=== PATIENT | female | born 1940 | race Caucasian/White ===

== ENCOUNTER 2018-11-30 15:21 | Inpatient (IN) | payer MEDICARE ==
[~2018-11-30] VITALS: Ht 162.6 cm; Wt 52.2 kg
[~2018-11-30 15:21] MED LIST changes: -ATORVASTATIN CA20 MG PO; -CARVEDILOL3.125 MG PO; -FUROSEMIDE40 MG PO; -LOTENSIN20 MG PO; -LUBRICANT EYE1 EACH OU; -PLAVIX75 MG PO; -RESTASIS1 EACH OU; -SYSTANE GEL EYE10 ML OU
--- OUTSIDE RECORDS SUMMARY | 2018-11-30 15:25 | XMS REPORT ---
Author [facility] Address Unknown Phone Unavailable Care Team Providers Care Restaurant Operations Manager Name Role Phone NYDIA ODELL Unavailable Unavailable Problems This patient has no known problems. Allergies, Adverse Reactions, Alerts This patient has no known allergies or adverse reactions. Medications This patient has no known medications. Results Test Description Test Time Test Comments Text Results Atomic Results Result Comments US RENAL RETROPERITONEAL COMP 2018-11-30 13:44:00 [place] [address] Patient Name: LISA HILTON MR #: [id number] : 1940 Age/Sex: 78/F Req #: [id number] Adm Physician: Ordered by: NYDIA ODELL MD Report #: [id number] Location: US Room/Bed: Procedure: [id number] US/US RENAL RETROPERITONEAL COMP Exam Date: 11/30/18 Exam Time: 1152 REPORT STATUS: Signed EXAM: Renal Ultrasound INDICATION: DYSURIA COMPARISON: None TECHNIQUE: Transverse and longitudinal images of the kidneys and bladder were obtained. FINDINGS: Right Kidney: Size: 10.1 cm, right renal cortex 1.2 cm. Appearance: Normal echogenicity. Collecting system: No hydronephrosis Stones: None Cyst/Mass: Multiple cystic, anechoic lesions are noted in the right kidney, with the largest located in the superior pole measuring 1.6 x 0.9 x 1.3 cm. Left Kidney: Size: 9.8 cm, left renal cortex 1.4 cm. Appearance: Normal echogenicity. Collecting system: No hydronephrosis Stones: None Cyst/Mass: 4.9 x 4.3 x 6.0 cm mostly exophytic lesion in the mid lateral aspect, which contains a thin nonvascular septation. Bladder: No focal lesions. 0.5 cm echogenic focus with posterior acoustic shadowing in the posterior aspect of the bladder, likely representing a calculus. Prevoid bladder volume 157.1 cc. Post void bladder volume 141.8 cc IMPRESSION: 1. Normal bilateral renal size and echogenicity. No hydronephrosis or obstruction. 2. Multiple simple appearing cysts in the right kidney, the point the largest measuring 1.6 cm. 3. 6.0 cm mostly exophytic minimally complex cyst in the left kidney. This may be followed with renal ultrasound in 6 months to document stability. 4. 0.5 cm calculus in the bladder lumen. This may represent a recently passed stone. 5. Mild to moderate post void residual Signed by: Dr. Lisa Lerma M.D. on 11/30/2018 1:48 PM Dictated By: LISA LERMA MD 1348 Transcribed By: RADHA on 11/30/18 1348 COPY TO: NYDIA ODELL MD CHEST 2 VIEWS 2018-11-30 13:41:00 [place] [address] Patient Name: LISA HILTON MR #: [id number] : 1940 Age/Sex: 78/F Req #: [id number] Adm Physician: Ordered by: NYDIA ODELL MD Report #: [id number] Location: US Room/Bed: Procedure: [id number] DX/CHEST 2 VIEWS Exam Date: 11/30/18 Exam Time: 1215 REPORT STATUS: Signed EXAMINATION: PA and lateral views of the chest. COMP ARISON: None CLINICAL HISTORY: Cough DISCUSSION: Lines/tubes: None. Lungs: The lungs are well inflated. Likely mild compressive atelectasis of the left lower lobe. Linear opacity in lingula likely represent subsegmental atelectasis. There is no evidence consolidation or pulmonary edema. Pleura: Small left pleural effusion. Heart and mediastinum: Mild enlargement of the cardiac silhouette. Pulmonary vasculature is normal. Atherosclerotic calcification of the thoracic aorta Bones and soft tissues: No acute bony abnormalities. Degenerative changes in the thoracic spine IMPRESSION: 1. Mild enlargement of the cardiac silhouette. Small left pleural effusion and likely associated mild compressive atelectasis of the left lower lobe. 2. Lingular subsegmental atelectasis. Signed by: Dr. Lisa Lerma M.D. on 11/30/2018 1:44 PM Dictated By: LISA LERMA MD 1344 Transcribed By: RADHA on 11/30/18 1344 COPY TO: NYDIA ODELL MD
[2018-11-30 17:23] LABS: BASOPHILS % 0.2 % (0.0-1.0); EOSINOPHILS % 0.1 % (0.0-6.0); HEMATOCRIT 43.9 % (34.2-44.1); HEMOGLOBIN 14.9 g/dL (12.0-16.0); LYMPHOCYTES # (AUTO) 0.5 (1.0-3.2); MEAN CORPUSCULAR HEMOGLOBIN 32.7 pg (28-32); MEAN CORPUSCULAR HGB CONC 33.9 g/dL (31-35); MEAN CORPUSCULAR VOLUME 96.5 fL (81-99); MONOCYTES # (AUTO) 0.4 (0.2-0.8); MONOCYTES % 4.3 % (4.4-11.3); NEUTROPHILS # (AUTO) 7.5 (2.1-6.9); NEUTROPHILS % 89.2 % (38.7-80.0); PLATELET COUNT 238 x10e3/uL (140-360); RED BLOOD COUNT 4.55 x10e6/uL (3.6-5.1); RED CELL DISTRIBUTION WIDTH 13.2 % (11.7-14.4)
[2018-11-30 17:34] LABS: INR 0.95; PROTHROMBIN TIME 13.2 seconds (11.9-14.5)
[2018-11-30 17:42] LABS: ALANINE AMINOTRANSFERASE 104 IU/L (0-55); ALBUMIN 3.6 g/dL (3.5-5.0); ALBUMIN/GLOBULIN RATIO 0.9 (0.8-2.0); ALKALINE PHOSPHATASE 94 IU/L (40-150); ANION GAP 15.5 mmol/L (8-16); BLOOD UREA NITROGEN 25 mg/dL (7-26); BUN/CREATININE RATIO 30 (6-25); CALCIUM 9.3 mg/dL (8.4-10.2); CARBON DIOXIDE 24 mmol/L (22-29); CHLORIDE 94 mmol/L (98-107); CREATINE KINASE 845 IU/L (29-168); CREATININE, SERUM 0.82 mg/dL (0.57-1.11); EST GLOMERULAR FILTRATION RATE > 60 ML/MIN (60-); GLUCOSE 118 mg/dL (74-118); MAGNESIUM 1.8 MG/DL (1.3-2.1); POTASSIUM 3.5 mmol/L (3.5-5.1); SODIUM 130 mmol/L (136-145)
[2018-11-30] MEDS ORDERED: CEFTRIAXONE SOD 1 GM/NS 50 ML 50 ML IV ONE (19:45)
[2018-11-30 19:51] LABS: BILIRUBIN,URINE NEGATIVE (NEGATIVE); CLARITY,URINE SL CLOUDY (CLEAR); COLOR,URINE YELLOW (YELLOW); KETONES,URINE TRACE (NEGATIVE); LEUKOCYTE ESTERASE ,URINE NEGATIVE (NEGATIVE); NITRITE,URINE NEGATIVE (NEGATIVE); URINE UROBILINOGEN 0.2 mg/dL (0.2 - 1)
[2018-11-30 19:52] LABS: PROTEIN,URINE DIPSTICK 2+ (NEGATIVE)
[2018-11-30 20:04] LABS: BACTERIA,URINE MANY /HPF
[2018-11-30] MEDS ORDERED: FUROSEMIDE INJ 10 MG/ML 2 ML VIAL ONE (21:35)
[2018-11-30] MEDS ORDERED: FUROSEMIDE INJ 10 MG/ML 4 ML VIAL IV ONE (21:45)
[2018-11-30] MEDS: FUROSEMIDE INJ 10 MG/ML 4 ML VIAL IV SCH (21:45)
--- NOTE | 2018-11-30 22:34 | NUR ---
Pt re-evaluated by me at bedside, new onset CHF- O2 saturation remained 98% on room air. Pt not tachypenic- BNP elevated and EF noted be low c/w systolic heart failure. Pt's CK is elevated- likely due to her work of breathing over the past few days and on arrival. Pt monitored by me in the ED- 60mg of Lasix given, pt diuresing in the ED- clinically improved. Pt speaking in full sentences, requiring no supplement O2. Pt stable for inpatient admission on the general medical floor with telemetry monitoring. Cardiology to follow.
--- NOTE | 2018-11-30 22:50 | NUR ---
PT BLADDERSCANNED AT BEDSIDE D/T C/O BLADDER FULLNESS AFTER LASIX INJ; PT STATES "I RELALY HAVE TO GO, BUT IT WONT COME OUT"; >300ML IN BLADDER SCANNER; 1000ML DRAINED INTO SONI AFTER INSERTION;
--- NOTE | 2018-11-30 23:48 | NUR ---
Received report from ER. The patient is admitted for CHF and SOB. The patient arrived on the bed with her daughter. The patient is alert/oriented x4. The patient provided her medical and surgical history as well as her medications. Call light within reach, bed height low, wheels lock, and bed alarm on. Patient was instructed to call for help for assistance with ambulation due to 3 falls in the past week.
[2018-11-30 23:50] VITALS: BP 140/81
[2018-11-30 23:52] VITALS: BP 140/81
[2018-12-01] VITALS (8 sets, daily range): BP systolic 131–143; BP diastolic 73–87
[2018-12-01] MEDS ORDERED: SYSTANE GEL EYE10 ML OU (00:31)
[2018-12-01] MEDS ORDERED: LUBRICANT EYE1 EACH OU (00:31)
[2018-12-01] MEDS ORDERED: RESTASIS1 EACH OU (00:31)
[2018-12-01 04:36] LABS: CREATINE KINASE MB 19.4 ng/mL (0-5.0)
[2018-12-01] MEDS ORDERED: LOTENSIN20 MG PO (05:22)
[2018-12-01 06:00] LABS: BASOPHILS % 0.2 % (0.0-1.0); EOSINOPHILS % 0.1 % (0.0-6.0); HEMATOCRIT 42.3 % (34.2-44.1); LYMPHOCYTES # (AUTO) 0.7 (1.0-3.2); MEAN CORPUSCULAR HGB CONC 33.1 g/dL (31-35); MEAN CORPUSCULAR VOLUME 96.6 fL (81-99); MONOCYTES # (AUTO) 0.6 (0.2-0.8); MONOCYTES % 6.3 % (4.4-11.3); NEUTROPHILS # (AUTO) 8.2 (2.1-6.9); PLATELET COUNT 225 x10e3/uL (140-360); RED BLOOD COUNT 4.38 x10e6/uL (3.6-5.1); RED CELL DISTRIBUTION WIDTH 13.1 % (11.7-14.4)
[2018-12-01 06:23] LABS: ALANINE AMINOTRANSFERASE 92 IU/L (0-55); ALBUMIN 3.2 g/dL (3.5-5.0); ALBUMIN/GLOBULIN RATIO 0.9 (0.8-2.0); ALKALINE PHOSPHATASE 86 IU/L (40-150); ANION GAP 16.8 mmol/L (8-16); BLOOD UREA NITROGEN 21 mg/dL (7-26); BUN/CREATININE RATIO 26 (6-25); CALCIUM 8.9 mg/dL (8.4-10.2); CARBON DIOXIDE 27 mmol/L (22-29); CHLORIDE 92 mmol/L (98-107); CREATININE, SERUM 0.81 mg/dL (0.57-1.11); EST GLOMERULAR FILTRATION RATE > 60 ML/MIN (60-); GLUCOSE 103 mg/dL (74-118); POTASSIUM 3.8 mmol/L (3.5-5.1); SODIUM 132 mmol/L (136-145)
[2018-12-01 06:47] LABS: CREATINE KINASE MB 18.7 ng/mL (0-5.0)
--- NOTE | 2018-12-01 07:12 | Diagnostic Imaging Report ---
Examination: Single AP view of the chest. COMPARISON: 11/30/2018 INDICATION: CHF DISCUSSION: The lungs remain well-inflated. Patchy retrocardiac opacity with blunting of the lateral costophrenic sulcus unchanged. No new consolidation. Stable enlargement of the cardiac silhouette. No overt pulmonary edema. No acute osseous abnormality. IMPRESSION: Stable mild enlargement of the cardiac silhouette, suspected small left pleural effusion, and passive retrocardiac atelectasis relative to 11/30/2018. No new consolidation. Signed by: Dr. Magdy Campbell M.D. on 12/01/2018 7:09 AM
[2018-12-01] MEDS ORDERED: CARBOXYMETHYLCELLULOSE OP PRN (07:45)
--- NOTE | 2018-12-01 07:56 | History and Physical ---
CHIEF COMPLAINT: A 78-year-old female, comes in with shortness of breath. HISTORY OF PRESENTING ILLNESS: Ms. Jessica Esqueda is a 78-year-old female with a history of hypothyroidism, history of Sjogren's syndrome, was in usual state of health until about a week ago she started having some shortness of breath and some cough, congestion, was given an antibiotic for upper respiratory system. The patient came and saw Dr. Lira yesterday and did an EKG. Chest x-ray which showed fluid overload and possible congestive heart failure. The patient was sent to the emergency room for shortness of breath and was found to have congestive heart failure. . MEDICATIONS: She takes benazepril 20 mg a day, eye lubricant daily, clonidine 0.2 mg at nighttime, Restasis for her Sjogren's, one each droplet twice a day b.i.d., Valium 5 mg daily, hydroxychloroquine 200 mg b.i.d., and levothyroxine 100 mcg daily. The patient also take MiraLAX daily too. PAST MEDICAL HISTORY: Includes hypertension, Sjogren's syndrome, sicca syndrome, history of anxiety, history of hypothyroidism, history of constipation, history of hypertension and restless legs syndrome. PAST SURGICAL HISTORY: History of cholecystectomy, hysterectomy, tonsillectomy and adenoidectomy. The patient also had a thyroid nodule that was removed. SOCIAL HISTORY: No EtOH, no IV drug abuse, and no history of smoking either. REVIEW OF SYSTEMS: Negative for chest pain. Positive for shortness of breath. Positive for fluid accumulation in the lower extremities. No nausea, vomiting, or diarrhea. No constipation. No rectal bleeding. No hematochezia. No hematemesis. ALLERGIES: INCLUDE CODEINE AND SULFONAMIDES. PHYSICAL EXAMINATION: VITAL SIGNS: Temperature is 96.8, pulse of 105, respirations of 18, blood pressure is 142/87, pulse oximetry of 96%. HEENT: Normocephalic, atraumatic. Pupils are reactive to light and accommodation. CVS: S1, S2 normal. Precordium is hyperdynamic. LUNGS: Positive for crackles in lower bases. ABDOMEN: Nontender, nondistended. EXTREMITIES: Positive for 2+ pitting edema. IMAGING STUDIES: Chest x-ray show pulmonary edema. EKG shows no acute ischemia. The patient had a wide-complex tachycardia and left bundle branch block with left axial deviation. LABORATORY DATA: White count was 8.44, hemoglobin 14.9, hematocrit of 43.9, neutrophil count is 89.2. Coags of 13.2, INR is 0.95. Urine was 6-10 rbc's and nitrites were negative. Echocardiogram was done on the apparently showed low EF. Official read unavailable at this time. BNP which is elevated at 2679. Troponins were negative. CK and CK-MB were elevated at 845 and 25.80. ASSESSMENT: 1. Congestive heart failure, new onset. Continue with IV diuresis, strict I's and O's. Lovenox for deep vein thrombosis prophylaxis. The patient also will get a fluid restriction of 1000 L. Echo to be officially read. Consult with Dr. Engle has been done. The patient's thyroid will be checked for thyroid abnormalities. 2. Hypothyroidism. Continue with thyroid medication. Check TSH. 3. History of restless legs syndrome. Continue on Requip. 4. Hypertension. Continue with antihypertensive and continuous cardiac monitoring. Beta blockade will be added. Further recommendation per clinical course. We will continue to monitor the patient along with health consultant, Dr. Engle. MD DILCIA Macias/SIDNEY /[id number]
[2018-12-01] MEDS ORDERED: RESTASIS OP PRN (09:00)
[2018-12-01] MEDS ORDERED: BENAZEPRIL HCL 10 MG TAB PO PRN (09:00)
[2018-12-01] MEDS ORDERED: DIAZEPAM 5 MG TAB PO SCH (09:00)
[2018-12-01] MEDS: CARVEDILOL 3.125 MG TAB PO SCH ×2 (09:21→17:36)
[2018-12-01] MEDS: FUROSEMIDE INJ 10 MG/ML 4 ML VIAL IV SCH ×2 (09:21→17:36)
[2018-12-01] MEDS: LEVOTHYROXINE SODIUM 100 MCG TAB PO SCH (09:21)
[2018-12-01] MEDS: HYDROXYCHLOROQUINE SULFATE 200 MG TAB PO SCH ×2 (09:22→17:37)
[2018-12-01 15:04] LABS: CREATINE KINASE MB 16.6 ng/mL (0-5.0)
--- NOTE | 2018-12-01 15:07 | NUR ---
Nutrition Screen Note RD Recommendation for Physician: -Continue diet as ordered Plan of Care: RD following, monitoring for tolerance and adequacy, diet education Nutrition reason for involvement: Diagnosis Primary Diagnose(s): Congestive heart failure, new onset PMH: hypertension, Sjogren's syndrome, sicca syndrome, anxiety, hypothyroidism, constipation, hypertension and restless legs syndrome. Ht: 64in Wt: 123lb BMI: 21.1kg/m2 IBW: 120lb +/- 10% RD Assessment: (12/01) Chart reviewed. Labs and meds reviewed. 78yo F, who was admitted for new onset CHF. Currently on IV diuresis, strict I's/ O's, and fluid restriction of 1000 mL. Visited pt in the room. Pt reported good appetite prior to and during hospital stay. Pt denied any chewing or swallowing difficulty. No complains of nausea or vomiting. RD offered education on low sodium diet and pt was agreeable. All questions have been answered. Current Diet: cardiac diet Malnutrition Evaluation (12/01/2018) The patient does not meet criteria for a specified degree of malnutrition at this time. Will re-evaluate at follow-up as appropriate. Diet Education Needs Assessment: Diet education indicated, pt was agreeable. Learner(s): pt Time spent: 15mins Barriers: No barriers identified. Cultural/Language Modifications: No cultural/language modifications noted. Pt speaks Austrian. Readiness: Acceptance Method: Handouts, explanation Topics: Heart failure nutrition therapy sodium, fluids restriction, weight management Understanding/Compliance: Expect fair understanding/compliance from pt. Will benefit from reinforcement. Nutrition Care Level: low Signed: Sunita Land, MS, RD, LD
[2018-12-01] MEDS: ACETAMINOPHEN 325 MG TAB PO PRN (15:12)
--- NOTE | 2018-12-01 18:45 | NUR ---
Received bedside report from day RN. The patient is sitting up on the bed, A/Ox4 and not in distress. Call light within reach, bed height low, wheels lock and side rails up x2.
[2018-12-01] MEDS: ROPINIROLE HCL 0.25 MG TAB PO SCH (20:19)
[2018-12-01] MEDS: VALSARTAN/SACUBITRIL 24MG/26MG 1 EA TAB PO SCH (20:19)
[2018-12-01] MEDS ORDERED: [UNRECOGNIZED DRUG - OTHER] OP PRN (21:00)
[2018-12-02] VITALS (7 sets, daily range): BP systolic 75–124; BP diastolic 58–77
--- NOTE | 2018-12-02 00:35 | Consultation ---
DATE OF CONSULTATION: 12/01/2018 Cardiology Consultation CONSULTING PHYSICIAN: Jae Macias MD, Interventional Cardiology. REASON FOR CONSULTATION: Heart failure. HISTORY OF PRESENT ILLNESS: Ms. Esqueda is a 78-year-old woman with history of hypertension and Sjogren syndrome, presents via the Emergency Department with complaints of worsening dependent leg edema, orthopnea as well as, fatigue and dyspnea on exertion. She has had recent issues with memory loss and confusion spells per family members. 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 She denies any palpitations or chest discomfort. On arrival to the ER, EKG was significant for sinus tachycardia and left bundle-branch block with very marked QRS widening. Diuretics were initiated with partial symptomatic response. She continues to complain of orthopnea. Echocardiogram reveals severe impairment in left ventricular systolic function with left ventricular ejection fraction of 20%. We discussed findings and plan of care. Jessica seems a little bit concerned about this findings and has requested we converse with and other family members, which was performed today in group phone conversation with the patient and family. REVIEW OF SYSTEMS: A 12-system review is negative except for steroids as noted above. PAST MEDICAL HISTORY: As per HPI. ALLERGIES: TO GABAPENTIN, CODEINE, AND SULFA. SOCIAL HISTORY: No smoking, alcohol, or drugs. FAMILY HISTORY: Noncontributory. PHYSICAL EXAMINATION: VITAL SIGNS: Temperature 36.7, heart rate 104, respiratory rate 20, blood pressure 140/79, O2 saturation 98%. BMI 21.1 GENERAL: In no acute distress. Alert. NECK: JVD elevated. No carotid bruits. CHEST: Decreased breath sounds in bilateral bases and bibasilar rales. CARDIOVASCULAR: Regular rate and rhythm. Normal S1 and S2, positive S3, no S4. Systolic ejection murmur 1/6. Tachycardic. ABDOMEN: Soft and nontender. EXTREMITIES: 1+ edema to both lower extremities. Euthermic distal extremities. CARDIOVASCULAR MEDICATIONS: Reviewed. 1. Furosemide 40 mg b.i.d. IV. 2. Carvedilol 3.125 mg every 12 hours. 3. Benazepril p.r.n. has not been given and has been discontinued with plans to initiate Entresto, 36-hour washout advised and discussed with staff. STUDIES: Reviewed. Sodium 132, potassium 3.8, chloride 92, bicarbonate 27. BUN 21, creatinine 0.8, glucose 103. White blood cells of 9.5, hemoglobin 14, platelets 225. AST 80, ALT 92, alkaline phosphatase 86. ASSESSMENT: A 78-year-old woman, presents with: 1. Acute severe systolic heart failure, new diagnosis. 2. Left bundle-branch block on EKG. 3. Sjogren's syndrome. 4. Volume overload. RECOMMENDATIONS: Coronary evaluation with angiography for further risk stratification, ischemic versus nonischemic etiology and further Cardizem management has been discussed. Indications, alternatives, risks, and benefits discussed with the patient and family members. The patient is agreeable to proceeding once orthopnea/PND has resolved. For now, continue IV diuretics, beta-kimmy therapy, and initiate Entresto. ALENA inhibitors have been discontinued from JUL and have not been administered in hospital per discussions with nursing staff. Overall, guarded prognosis. Thank you for the opportunity to participate in the care of Ms. Esqueda. Please feel free to call with any questions or concerns. Jae Macias MD AFKwasi/MODL /[id number]
[2018-12-02] MEDS: ACETAMINOPHEN 325 MG TAB PO PRN ×2 (02:55→19:28)
[2018-12-02] MEDS: LEVOTHYROXINE SODIUM 100 MCG TAB PO SCH (05:03)
[2018-12-02 06:04] LABS: ANION GAP 18.7 mmol/L (8-16); BLOOD UREA NITROGEN 25 mg/dL (7-26); BUN/CREATININE RATIO 32 (6-25); CALCIUM 8.1 mg/dL (8.4-10.2); CARBON DIOXIDE 27 mmol/L (22-29); CHLORIDE 89 mmol/L (98-107); CREATININE, SERUM 0.78 mg/dL (0.57-1.11); EST GLOMERULAR FILTRATION RATE > 60 ML/MIN (60-); GLUCOSE 89 mg/dL (74-118); SODIUM 132 mmol/L (136-145)
[2018-12-02 06:06] LABS: POTASSIUM 2.7 mmol/L (3.5-5.1)
[2018-12-02] MEDS ORDERED: POTASSIUM CHLORIDE 10MEQ/100ML 200 ML IV ONE (06:15)
[2018-12-02] MEDS ORDERED: SODIUM CHLORIDE 0.9% 250ML 250 ML ONE ×2 (06:16→09:24)
--- NOTE | 2018-12-02 06:29 | NUR ---
Received lab critical potassium of 2.[address] Ba Saab with the critical lab. Received order to give 20 meq IV now, 20 meq IV two hours later and 20 meq PO in the afternoon scheduled around 1700. Administering the first dose of 10 meq IV now and will hang the next bag.
--- NOTE | 2018-12-02 06:47 | Progress Note ---
DATE: 12/02/2018 SUBJECTIVE: This is a 78-year-old female, who comes in with acute congestive heart failure. The patient is currently sleeping. No complaints as per nursing. The patient had a good night. No chest pain noted. No shortness of breath. No palpitations. No rectal bleeding and no hematochezia. OBJECTIVE: VITAL SIGNS: Temperature is 96.5, pulse of 94, respirations of 19, blood pressure is 124/77, pulse oximetry of 95%. HEENT: Normocephalic, atraumatic. The patient's pupils are reactive to light and accommodation. CVS: S1 and S2 are normal. Regular rate and rhythm. ABDOMEN: Nontender, nondistended. EXTREMITIES: No clubbing. No cyanosis. Positive for edema. LABORATORY VALUES: From today none has been drawn. White count yesterday was 9.5. Chemistry; sodium was 132 yesterday and potassium was 3.8. They are pending today. BUN and creatinine were 21 and 0.81. Troponins have been trended to be negative. Elevated CK and CK-MB have been noted. ALT and AST elevation have been noted too. ASSESSMENT: 1. Acute severe systolic congestive heart failure. I did discuss with Dr. Engle, her echo showed an EF of 25%. 2. Left bundle-branch block. 3. History of Sjogren syndrome. 4. Hyponatremia. 5. Hypertension. PLAN: Plan at this time would be to continue with risk stratification. The patient has been started on Entresto and also beta-blockade by Dr. Engle. We will continue monitoring the patient with IV diuresis. BMP will be done on a daily basis. The patient's medications have been reviewed. Continue with cardiac medications at this time and also with medications for her Sjogren's. The patient also has a history of restless legs syndrome. We will continue on ropinirole for the same. Further recommendation per clinical course. The patient's benazepril has been stopped and the patient has been on Entresto. Risk stratification will continue and the patient will be monitored continuously. MD DILCIA Macias/SIDNEY /[id number]
--- NOTE | 2018-12-02 06:52 | NUR ---
Patient stated she is feeling nausea and stated it is possible due to the potassium IV. RN contacted Dr. Saab's answering for order.
[2018-12-02] MEDS ORDERED: ONDANSETRON HCL INJ 2MG/ML 2ML 2 MG/ML VIAL IV PRN (07:30)
--- NOTE | 2018-12-02 07:40 | NUR ---
Received patient this morning and a/ox3, in bed and call light within reach, will monitor.
[2018-12-02] MEDS ORDERED: POTASSIUM CHLORIDE 20MEQ/100ML 100 ML IV ONE (08:30)
[2018-12-02] MEDS: FUROSEMIDE INJ 10 MG/ML 4 ML VIAL IV SCH (08:40)
[2018-12-02] MEDS: CARVEDILOL 3.125 MG TAB PO SCH ×2 (08:40→16:59)
--- NOTE | 2018-12-02 08:45 | NUR ---
Arrived patient room, alert but states she is seeing different colors and the suddenly transitioned to no vision, could not see staff person and anybody. Checked BP and 58/38, rapid response called, placed on trendelenberg and BP 85/40, rechecked again and at 100/70.
[2018-12-02] MEDS: VALSARTAN/SACUBITRIL 24MG/26MG 1 EA TAB PO SCH (09:00)
[2018-12-02] MEDS: HYDROXYCHLOROQUINE SULFATE 200 MG TAB PO SCH ×2 (09:00→17:00)
--- NOTE | 2018-12-02 09:09 | NUR ---
Orders per Dr. Sellers to d/c all IV fluids and ordered KCL [id number] by mouth. Orders for stat EKG and Cardiac enzymes. Dr. Engle who is entry level project coordinator notified.
--- NOTE | 2018-12-02 09:12 | NUR ---
Call placed to Dr. Saab to inform of the rapid response. New order to hold entresto, stop the lasix, bolus 250ml of Normal saline and continue to monitor
[2018-12-02] MEDS ORDERED: SODIUM CHLORIDE 0.9% 250ML 250 ML IV ONE (09:30)
[2018-12-02 09:47] LABS: CREATINE KINASE MB 12.3 ng/mL (0-5.0)
[2018-12-02] MEDS ORDERED: POTASSIUM CHLORIDE 20 MEQ TAB CR PO ONE (10:00)
[2018-12-02] MEDS ORDERED: POTASSIUM CHLORIDE 20 MEQ TAB CR PO SCH ×3 (11:30→17:00)
[2018-12-02] MEDS ORDERED: ONDANSETRON HCL 4 MG ORAL DISINTEGRATING TAB PO PRN (12:00)
--- NOTE | 2018-12-02 12:03 | Progress Note ---
DATE: 12/02/2018 Cardiology Progress Note SUBJECTIVE: The patient had episode of hypotension and lightheadedness today after potassium chloride IV initiation, was associated with some discomfort at IV site. She was found to have systolic blood pressure in the 60s and a rapid was called. IV fluid initiated and reverse Trendelenburg applied with improvement and resolution of hypotension symptoms. Denies chest pain currently or shortness of breath. OBJECTIVE: VITAL SIGNS: Temperature 96.6, heart rate 90, blood pressure 116/70, respiratory rate 17, O2 saturation 96% on room air. GENERAL: In no acute distress. Alert. NECK: JVD present in lying and recumbent position. CHEST: Clear to auscultation. CARDIOVASCULAR: Regular rate and rhythm. Normal S1 and S2. Systolic ejection murmur. ABDOMEN: Soft and nontender. EXTREMITIES: 1+ edema to both lower extremities. CARDIOVASCULAR MEDICATIONS: Reviewed, on: 1. Coreg 3.125 mg every 12 hours. 2. KCl 40 mEq. 3. Furosemide 40 mg IV daily. 4. Entresto has been discontinued this a.m. given hypotensive episode. LABORATORY STUDIES: White blood cells 9.5, hemoglobin 14, platelets 225,. Sodium 132, potassium 2.7, chloride 89, bicarbonate 27, BUN 25, creatinine 0.7, glucose 89, calcium 8.1. Troponin I negative x4. ASSESSMENT: A 78-year-old woman presents with acute severe systolic and diastolic mixed heart failure, symptomatic, NYHA IV. 1. Left bundle-branch block. 2. Sjogren syndrome. 3. Hypertension. 4. Hyponatremia. 5. Hypokalemia. 6. Episodes of transient hypotension, suspect vasovagal etiology, confounded by intravascular volume depletion in the setting of diuretics and new initiation of antihypertensives/heart failure therapy. RECOMMENDATIONS: 1. For today stabilize blood pressure and monitor. 2. Discontinue further IV fluids as the patient does have heart failure and has had improvement in blood pressure. 3. Continue with carvedilol and Lasix for today and depending on response of blood pressure can consider resuming Entresto at a later date. 4. Replete electrolytes via oral route if possible. 5. Guarded prognosis. 6. We will defer coronary angiography for likely Wednesday or Wednesday, depending on continued clinical progress. MD ELIU Duenas/GABYL /[id number]
--- NOTE | 2018-12-02 12:04 | NUR ---
EDUCATED ABOUT IMM, SIGNED, FILED IN CHART, WITH COPY LEFT WITH FAMILY AT BEDSIDE.
[2018-12-02] MEDS ORDERED: SODIUM CHLORIDE 0.9% 1000ML 1,000 ML ONE (15:14)
--- NOTE | 2018-12-02 17:57 | NUR ---
Patient more stable, BP improved to 107//72, asymptomatic and O2Sats 97% on 1L, no resp distress, provided with bed bath and tolerated all meals, call light within reach, tolerated all KCL orders today, will monitor
[2018-12-02] MEDS: DIAZEPAM 5 MG TAB PO SCH (21:06)
[2018-12-02] MEDS: ROPINIROLE HCL 0.25 MG TAB PO SCH (21:06)
[2018-12-03] VITALS (8 sets, daily range): BP systolic 92–119; BP diastolic 69–90
[2018-12-03] MEDS: ACETAMINOPHEN 325 MG TAB PO PRN ×2 (02:06→23:10)
[2018-12-03 05:41] LABS: BASOPHILS % 0.1 % (0.0-1.0); EOSINOPHILS % 0.3 % (0.0-6.0); HEMATOCRIT 43.4 % (34.2-44.1); HEMOGLOBIN 14.3 g/dL (12.0-16.0); LYMPHOCYTES # (AUTO) 0.9 (1.0-3.2); MEAN CORPUSCULAR HGB CONC 32.9 g/dL (31-35); MEAN CORPUSCULAR VOLUME 97.1 fL (81-99); MONOCYTES # (AUTO) 0.7 (0.2-0.8); NEUTROPHILS # (AUTO) 5.9 (2.1-6.9); NEUTROPHILS % 78.2 % (38.7-80.0); PLATELET COUNT 181 x10e3/uL (140-360); RED BLOOD COUNT 4.47 x10e6/uL (3.6-5.1); RED CELL DISTRIBUTION WIDTH 13.1 % (11.7-14.4)
[2018-12-03 05:58] LABS: ANION GAP 15.9 mmol/L (8-16); BLOOD UREA NITROGEN 32 mg/dL (7-26); BUN/CREATININE RATIO 43 (6-25); CALCIUM 8.1 mg/dL (8.4-10.2); CARBON DIOXIDE 26 mmol/L (22-29); CHLORIDE 97 mmol/L (98-107); CREATININE, SERUM 0.75 mg/dL (0.57-1.11); EST GLOMERULAR FILTRATION RATE > 60 ML/MIN (60-); GLUCOSE 103 mg/dL (74-118); POTASSIUM 4.9 mmol/L (3.5-5.1); SODIUM 134 mmol/L (136-145)
--- NOTE | 2018-12-03 06:38 | Progress Note ---
DATE: 12/03/2018 SUBJECTIVE: The patient is a 78-year-old female, comes in with congestive heart failure. Patient's EF said to be 20%. Patient had one rapid response history with low blood pressures, fluids were given and notes Entresto was stopped at that time. The patient is currently asymptomatic. No chest pain. Shortness of breath is better. No orthopnea. No PND. OBJECTIVE: VITAL SIGNS: Today, temperature is 96.3, pulse is 89, respirations 17, blood pressure is 113/82, and pulse ox of 96%. HEENT: Normocephalic, atraumatic. Pupils are reactive to light and accommodation. CVS: S1, S2. Regular rate and rhythm. Positive ejection systolic murmur. ABDOMEN: Nontender, nondistended. EXTREMITIES: No clubbing. No cyanosis. Positive for edema. LABORATORY VALUES: Today's white count is 7.58, hemoglobin 14.3, and hematocrit 43.4. Sodium is 134, potassium is back to 4.9, BUN of 32, creatinine 0.75, and troponins have been trended to be negative. Urine culture clean-catch done on was negative. ASSESSMENT: 1. Acute congestive heart failure. 2. Hypertension. 3. Hyponatremia. 4. Hypokalemia. 5. The patient had hypertensive episode yesterday. 6. Sjogren syndrome. 7. History of restless legs syndrome. PLAN: Plan is to continue with diuresis and to restart Entresto, it is okay with Cardiology. The patient is scheduled for a possible cardiac catheterization on Wednesday or Wednesday. Prognosis is guarded. Electrolytes have been repleted. Further recommendation per clinical course. We will continue to monitor the patient along with Dr. Engle. MD DILCIA Macias/MODL /[id number]
[2018-12-03] MEDS: LEVOTHYROXINE SODIUM 100 MCG TAB PO SCH (07:30)
--- NOTE | 2018-12-03 07:32 | NUR ---
Received patient this morning, a/ox3, pleasant and Iworried about clinical diagnosis, offered some education and plan for treatment explained per MD plan of care. No c/o pains, Godinez cath in place and draining, continues on F/R of 1000cc/24 hours, call light within reach, no adverse events, will monitor
[2018-12-03] MEDS: FUROSEMIDE INJ 10 MG/ML 4 ML VIAL IV SCH (08:52)
[2018-12-03] MEDS: CARVEDILOL 3.125 MG TAB PO SCH ×2 (08:53→17:32)
[2018-12-03] MEDS: HYDROXYCHLOROQUINE SULFATE 200 MG TAB PO SCH ×2 (08:53→17:32)
--- NOTE | 2018-12-03 11:33 | NUR ---
Patient alert and responsive, OOB and ambulated about 150 feet, exhausted and fatigued, back to room and sat on chair for a while and assisted back to bed. had a BM as well with assistance to B/R.
--- NOTE | 2018-12-03 18:25 | Progress Note ---
DATE: 12/03/2018 SUBJECTIVE: No complaints. Denies any recurrent episodes of lightheadedness. Denies shortness of breath or chest discomfort. OBJECTIVE: VITAL SIGNS: Reviewed temperature 97.6, heart rate 93, blood pressure 114/90, respiratory rate 20, and O2 saturation 98%. GENERAL: In no acute distress, alert. NECK: No JVD. CHEST: Clear to auscultation bilaterally. CARDIOVASCULAR: Regular rate and rhythm, normal S1, S2. No S3 or S4, systolic ejection murmur. ABDOMEN: Soft and nontender. EXTREMITIES: Trace edema to both lower extremities. CARDIOVASCULAR MEDICATIONS: Reviewed. Carvedilol 3.125 mg every 12 hours, furosemide 40 mg IV daily. STUDIES: Reviewed. Sodium 134, potassium 4.9, chloride 97, bicarbonate 26, BUN 32, creatinine 0.75, and glucose 103. White blood cell 7.5, hemoglobin 14.3, and platelets 181. INR 0.9. AST 80, ALT 92, alkaline phosphatase 86, total bilirubin 0.5. ASSESSMENT: 1. A 78-year-old woman with acute severe systolic heart failure with ejection fraction of 20%, restrictive filling. 2. Sjogren syndrome. 3. Cachexia. 4. Suspected dementia. RECOMMENDATIONS: 1. Continue carvedilol for now at current dose. 2. Low normal blood pressure reads limiting, resuming Entresto, continue to hold off at this point. 3. Continue IV Lasix for one more day at 40 mg daily and consider transitioning to stable dose p.o. 20 mg daily afterwards. 4. I have discussed with the patient and family members indications, alternatives, risks, and benefits for coronary angiography and possible endovascular intervention. The patient's family voiced understanding and agreement. I am attempting to obtain availability Wednesday to schedule if the patient remains otherwise stable hemodynamically till then. 5. Guarded prognosis. MD ELIU Duenas/SIDNEY /[id number]
[2018-12-03] MEDS: DIAZEPAM 5 MG TAB PO SCH (21:03)
[2018-12-03] MEDS: ROPINIROLE HCL 0.25 MG TAB PO SCH (21:03)
[2018-12-04] VITALS (8 sets, daily range): BP systolic 97–137; BP diastolic 53–75
[2018-12-04 05:36] LABS: BLOOD UREA NITROGEN 32 mg/dL (7-26); BUN/CREATININE RATIO 44 (6-25); CALCIUM 8.3 mg/dL (8.4-10.2); CARBON DIOXIDE 25 mmol/L (22-29); CHLORIDE 94 mmol/L (98-107); CREATININE, SERUM 0.72 mg/dL (0.57-1.11); EST GLOMERULAR FILTRATION RATE > 60 ML/MIN (60-); GLUCOSE 97 mg/dL (74-118); SODIUM 132 mmol/L (136-145)
[2018-12-04] MEDS: ACETAMINOPHEN 325 MG TAB PO PRN ×3 (06:16→23:10)
[2018-12-04] MEDS: LEVOTHYROXINE SODIUM 100 MCG TAB PO SCH (07:30)
--- NOTE | 2018-12-04 07:45 | NUR ---
Received patient and a/ox3, in bed and no distress, call light within reach and will monitor.
[2018-12-04] MEDS: CARVEDILOL 3.125 MG TAB PO SCH ×2 (08:40→17:00)
[2018-12-04] MEDS: FUROSEMIDE INJ 10 MG/ML 4 ML VIAL IV SCH (08:40)
[2018-12-04] MEDS: HYDROXYCHLOROQUINE SULFATE 200 MG TAB PO SCH ×2 (08:40→17:00)
--- NOTE | 2018-12-04 10:48 | Progress Note ---
DATE: 12/04/2018 SUBJECTIVE: The patient is here for congestive heart failure. The patient is scheduled for cardiac cath on Wednesday morning. Currently asymptomatic. No orthopnea. No PND. Did have some shortness of breath on exertion yesterday, otherwise stable. MEDICATIONS: The patient is on carvedilol and also on hydroxychloroquine, Lasix 40 mg IV b.i.d., levothyroxine, and Zofran. OBJECTIVE: VITAL SIGNS: Temperature is 95.4, afebrile for the last 48 hours, pulse of 83, blood pressure 113/56, pulse oximetry of 96%. HEENT: Normocephalic, atraumatic. Pupils reactive to light and accommodation. CVS: S1, S2 normal. Regular rate and rhythm. ABDOMEN: Nontender and nondistended. EXTREMITIES: No clubbing, no cyanosis. Positive for edema. LABORATORY VALUES: Chemistries done today showed a BUN of 32, creatinine 0.72. MICROBIOLOGY: Urine culture was no growth in 36 to 48 hours. ASSESSMENT: 1. Acute congestive heart failure with ejection of 20%. 2. Hypertension. 3. Hyperlipidemia. 4. History of Sjogren syndrome. PLAN: Continue with IV Lasix. Cardiac catheterization tomorrow. Prognosis is guarded. Electrolyte repletion as needed. Further recommendation per clinical course. We will continue to monitor the patient and strict I's and O's. MD DILCIA Macias/MODL /[id number]
--- NOTE | 2018-12-04 18:30 | NUR ---
Patient alert and responsive, no resp distress, c/o headaches and medicated with good effect.
--- NOTE | 2018-12-04 18:59 | NUR ---
Rounds by Dr. Engle, explained procedure to patient and family, daughter per patient's authorization signed consent for procedure tomorrow.
--- NOTE | 2018-12-04 20:44 | NUR ---
vitals rechecked BP= 105/55 mmhg, MI 70 b/min
[2018-12-04] MEDS: ROPINIROLE HCL 0.25 MG TAB PO SCH (21:01)
[2018-12-04] MEDS: DIAZEPAM 5 MG TAB PO SCH (21:01)
--- NOTE | 2018-12-04 21:30 | Progress Note ---
DATE: 12/04/2018 Cardiology Progress Note SUBJECTIVE: Denies chest pain or shortness of breath. Lethargy spells are less frequent. No new complaints otherwise. OBJECTIVE: VITAL SIGNS: Temperature 95.7, heart rate 85, respiratory rate 22, blood pressure 104/53, O2 saturation 98% on 2 L/min nasal cannula. GENERAL: No acute distress, alert. NECK: No JVD. CHEST: Clear to auscultation. CARDIOVASCULAR: Regular rate and rhythm. Normal S1 and S2. ABDOMEN: Soft, nontender. EXTREMITIES: No edema, warm distal extremities. CARDIOVASCULAR MEDICATIONS: Reviewed: 1. Lasix 40 mg IV daily. 2. Carvedilol 3.125 mg every 12 hours. LABORATORY DATA: Sodium 132, potassium 4, chloride 94, bicarbonate 25, BUN 32, creatinine 0.7, glucose 97. ASSESSMENT: 1. Acute severe systolic heart failure. 2. Left bundle branch block. 3. Sjogren's syndrome. 4. Cachexia. 5. Suspected dementia. RECOMMENDATIONS: 1. Continue carvedilol at current dose. 2. Initiate aspirin 81 mg daily. 3. Transition Lasix from IV 40 to 20 mg p.o. daily and assess response. 4. Consider Entresto. Continue blood pressure reads. At this point, limiting factor remains persistent lightheaded spells and low normal blood pressure reads. 5. Plan for coronary angiography and possible intervention tomorrow a.m., all questions addressed. MD ELIU Duenas/SIDNEY /[id number]
[2018-12-04] MEDS ORDERED: SODIUM CHLORIDE 0.9% 1000ML 1,000 ML IV SCH (23:55)
[2018-12-05] VITALS (21 sets, daily range): BP systolic 86–119; BP diastolic 52–82
[2018-12-05 05:45] LABS: BASOPHILS % 0.4 % (0.0-1.0); EOSINOPHILS # (AUTO) 0.2 (0.0-0.4); EOSINOPHILS % 2.9 % (0.0-6.0); HEMATOCRIT 37.4 % (34.2-44.1); HEMOGLOBIN 12.6 g/dL (12.0-16.0); LYMPHOCYTES # (AUTO) 0.7 (1.0-3.2); LYMPHOCYTES % 10.6 % (18.0-39.1); MEAN CORPUSCULAR HEMOGLOBIN 32.6 pg (28-32); MEAN CORPUSCULAR HGB CONC 33.7 g/dL (31-35); MEAN CORPUSCULAR VOLUME 96.6 fL (81-99); MONOCYTES # (AUTO) 0.6 (0.2-0.8); MONOCYTES % 8.2 % (4.4-11.3); NEUTROPHILS # (AUTO) 5.4 (2.1-6.9); NEUTROPHILS % 77.8 % (38.7-80.0); PLATELET COUNT 129 x10e3/uL (140-360); RED BLOOD COUNT 3.87 x10e6/uL (3.6-5.1); RED CELL DISTRIBUTION WIDTH 13.1 % (11.7-14.4)
--- NOTE | 2018-12-05 05:45 | NUR ---
hibiclens bath given.
[2018-12-05 05:54] LABS: INR 0.93
[2018-12-05 05:55] LABS: PARTIAL THROMBOPLASTIN TIME 31.1 seconds (23.8-35.5)
[2018-12-05 06:00] LABS: ANION GAP 14.6 mmol/L (8-16); BLOOD UREA NITROGEN 29 mg/dL (7-26); BUN/CREATININE RATIO 46 (6-25); CARBON DIOXIDE 23 mmol/L (22-29); CHLORIDE 95 mmol/L (98-107); CREATININE, SERUM 0.63 mg/dL (0.57-1.11); EST GLOMERULAR FILTRATION RATE > 60 ML/MIN (60-); GLUCOSE 93 mg/dL (74-118); POTASSIUM 3.6 mmol/L (3.5-5.1); SODIUM 129 mmol/L (136-145)
--- NOTE | 2018-12-05 07:00 | NUR ---
received am report from nurse, morning rounds done. pt is alert, no s/s of distress. call light within reach. is at the bedside. pt was instructed to remove jewelry for EGD scheduled today, wedding band was removed by nurse and handed to .
[2018-12-05 07:08] LABS: LYMPHOCYTES % (MANUAL) 11 % (19-48); MONOCYTES % (MANUAL) 2 % (3.4-9.0); NEUTROPHILS % (MANUAL) 87 % (40-74)
[2018-12-05 07:12] LABS: ANISOCYTOSIS SLIGHT; PLATELET ESTIMATE ADEQUATE; PLATELET MORPHOLOGY COMMENT NORMAL; POIKILOCYTOSIS SLIGHT; RBC MORPHOLOGY COMMENT NORMAL
[2018-12-05] MEDS: LEVOTHYROXINE SODIUM 100 MCG TAB PO SCH (07:30)
[2018-12-05] MEDS: HYDROXYCHLOROQUINE SULFATE 200 MG TAB PO SCH ×2 (07:52→17:21)
[2018-12-05] MEDS: CARVEDILOL 3.125 MG TAB PO SCH ×2 (07:52→17:21)
--- NOTE | 2018-12-05 07:53 | Progress Note ---
DATE: 12/05/2018 SUBJECTIVE: The patient is a 78-year-old female, comes with acute congestive heart failure with ejection fraction of 25%. The patient is scheduled for cardiac cath today. No overnight events. The patient has been doing okay, continued to be on the Lasix IV twice a day. No chest pain. No shortness of breath. OBJECTIVE: VITAL SIGNS: Temperature is 97.1, pulse of 75, respirations of 18, blood pressure is 106/58, pulse oximetry of 98%. HEENT: Normocephalic, atraumatic. Pupils are reactive to light and accommodation. CVS: S1 and S2 normal. Ejection systolic murmur. ABDOMEN: Nontender, nondistended. EXTREMITIES: Trace edema present. MEDICATIONS: Continued to be on 650 mg of Tylenol as needed, Valium at bedtime, carvedilol 3.125 mg twice a day, hydroxychloroquine 200 mg daily, levothyroxine 100 mcg daily, furosemide 20 p.o. The patient's IV was discontinued yesterday. LABORATORY VALUES: Hemoglobin is 12.6, hematocrit is 37.4. Sodium of 129, potassium is 3.6, and BUN and creatinine of 29 and 0.63. Troponins have been negative. MICROBIOLOGY: No growth. ASSESSMENT: 1. A 78-year-old female with acute severe congestive heart failure. The patient is scheduled for catheterization. 2. Sjogren syndrome. Continue on hydroxychloroquine. 3. Hypertension. Continue with medications. 4. Left bundle-branch block. The patient is due for a cardiac cath. 5. Hyponatremia. We will scale back on the Lasix. It should be corrected. The patient also has hypokalemia, which has been corrected. PLAN: Continue monitoring the patient. Continue followup after angiography and also continue repleting the electrolytes as needed. MD DILCIA Macias/SIDNEY /[id number]
[2018-12-05] MEDS ORDERED: VERAPAMIL HCL 2.5 MG/ML 2 ML VIAL ONE (07:55)
[2018-12-05] MEDS ORDERED: HEPARIN SOD (PORCINE) 1000 UNIT/ML 30ML ONE (07:55)
[2018-12-05] MEDS ORDERED: LIDOCAINE HCL 2% LOCAL 20 ML VIAL ONE (07:55)
[2018-12-05] MEDS ORDERED: MIDAZOLAM HCL 2 MG/2 ML VIAL ONE (07:55)
[2018-12-05] MEDS ORDERED: FENTANYL CITRATE/PF 100MCG/2 ML INJ ONE (07:55)
[2018-12-05] MEDS ORDERED: IOPAMIDOL 370 MG/ML 200 ML INFUS..BTL INJ ONE (07:56)
[2018-12-05] MEDS ORDERED: SODIUM CHLORIDE 0.9% 1000ML 1,000 ML ONE (07:56)
[2018-12-05] MEDS ORDERED: NITROGLYCERIN/D5W 200 MCG/ML 250 ML ONE (07:56)
[2018-12-05] MEDS ORDERED: HEPARIN SOD/SOD CHLORIDE 2,000 ML ONE (07:56)
--- NOTE | 2018-12-05 08:12 | NUR ---
pt was transferred via hospital bed to the dental laboratory technician apprentice. no s/s of distress
[2018-12-05] MEDS: FUROSEMIDE 20 MG TAB PO SCH (09:00)
[2018-12-05] MEDS: ASPIRIN 81 MG CHEW TAB PO SCH (09:00)
[2018-12-05] MEDS ORDERED: ASPIRIN 325 MG TAB ONE (09:32)
[2018-12-05] MEDS ORDERED: CLOPIDOGREL BISULFATE 300 MG TAB-DO NOT STOCK ONE (09:34)
[2018-12-05] MEDS ORDERED: ACETAMINOPHEN 325 MG TAB PO PRN (10:00)
[2018-12-05] MEDS ORDERED: ONDANSETRON HCL INJ 2MG/ML 2ML 2 MG/ML VIAL IV PRN (10:00)
--- NOTE | 2018-12-05 10:59 | Progress Note ---
DATE: 12/05/2018 Cardiology Progress Note SUBJECTIVE: No new complaints. OBJECTIVE: VITAL SIGNS: Temperature 96.8, heart rate 80, respiratory rate 16, blood pressure 108/63, O2 saturation 99% on room air. GENERAL: In no acute distress, alert. NECK: No JVD. CHEST: Clear to auscultation. CARDIOVASCULAR: Regular rate and rhythm. Normal S1, S2. No S3 or S4. Systolic ejection murmur 1/6. ABDOMEN: Soft, nontender. EXTREMITIES: No edema, warm distal extremities. CARDIOVASCULAR MEDICATIONS: Reviewed. Carvedilol 3.125 mg every 12 hours, aspirin 81 mg daily, furosemide 20 mg p.o. daily, clopidogrel 75 mg daily, starting tomorrow after 600 mg provided today for drug-eluting stent and PCI to the ostium of the RCA. LABORATORY DATA: White blood cells 6.9, hemoglobin 12.6, platelets 129, trending down. PT is 13, INR 0.9, PTT 31. Sodium 129, trending down, potassium 3.6, chloride 95, bicarbonate 23, BUN 29, creatinine 0.6, calcium 8. Telemetry, in sinus rhythm. ASSESSMENT: 1. Multivessel coronary artery disease, status post ostial RCA drug-eluting stent PCI with residual uupo-[id number] disease of other vessels of the coronary tree. 2. Left bundle branch block. 3. Sjogren syndrome. 4. Hyponatremia. 5. Elevated BUN to creatinine ratio are abnormal. Markers conferring adverse outcomes from cardiac standpoint also with restrictive filling on echo, EF less than 20%. 6. Acute severe systolic heart failure. 7. Suspected dementia. 8. Cachexia. RECOMMENDATIONS: 1. Aspirin 81 mg daily. 2. Clopidogrel 75 mg daily. 3. Continue carvedilol at current dose. 4. Unable to at Entresto given low blood pressure reads. 5. Continue low-sodium diet. 6. Initiate fluid restriction of 1.2 L a day given hyponatremia. 7. Discussed with patient and family members were agreeable for LifeVest. We will arrange. 8. Status post radial site access for drug-eluting stent and PCI. We will monitor. 9. Overall guarded prognosis. Jae Macias MD AFV/MODPamela /[id number]
--- NOTE | 2018-12-05 12:54 | NUR ---
DISCUSSED IN BARRIER ROUNDS, PATIENT IN BEND UP RECOVERY AT THIS TIME, PATIENT WITH EF 25% ON A 1.2 L FLUID RESTRICTION. PATIENT WITH NEW ONSET CHF. CM RECOMMENDS HOME HEALTH FOR EDUCATION AND DISEASE MANAGEMENT. BEDSIDE RN AWARE AND PAGING MD FOR PLAN OF CARE AND REQUEST FOR HOME HEALTH ORDERS. PENDING ORDER FOR INITIATION.
--- NOTE | 2018-12-05 20:00 | NUR ---
spoke with Eulalio Villegas with [facility]. he will be here between [id number] on 12/06/18 to get necessary paperwork and have Dr. Engle sign all the necessary paperwork. the contact number for Eulalio is
[2018-12-05] MEDS: DIAZEPAM 5 MG TAB PO SCH (20:04)
[2018-12-05] MEDS: ROPINIROLE HCL 0.25 MG TAB PO SCH (20:04)
[2018-12-05] MEDS: ATORVASTATIN 40 MG TAB PO SCH (20:04)
--- NOTE | 2018-12-05 20:24 | NUR ---
Dr. Engle notified of right thumb swelling and purple and blue bruising at cath site on right wrist. New orders received to hold pressure for 20 minutes 1 inch above site and sterile dress the site and place a wrist immobilizer.
--- NOTE | 2018-12-05 20:43 | NUR ---
SPOKE TO MD FLORES. PER MD HOLD PRESSURE 1 INCH ABOVE PUNCTURE SITE FOR 20MINUTES. PLACE TEGADERM AND STERILE GAUZE TO PUNCTURE SITE. BLAIR SITE AND MONITOR FOR BLEEDING. PLACE WRIST IMMOBILIZER. HAVE OCCUPATIONAL HEALTH NURSE REASSESS PATIENT IN THE MORNING ON 12/06/18. MYCOLOGIST AND ICU NURSE IN ROOM TO ASSIST PM NURSE. MYCOLOGIST SPOKE TO MD ON PHONE WHILE IN ROOM. PM NURSE AWARE TO CONTINUE TO MONITOR.
--- NOTE | 2018-12-05 21:10 | NUR ---
Pt right arm elevated on two pillows at this time. Wrist immobilizer is in place. Pt is in no apparent distress at this time. Will continue to monitor pt.
--- NOTE | 2018-12-05 22:12 | NUR ---
Pt continues to elevate right arm on pillows. Right wrist site reassessed at this time. No changes in color or swelling at this time. Will continue to monitor.
--- NOTE | 2018-12-05 22:33 | NUR ---
Pt requesting snack at this time and states that her hand "feels much better". Will continue to monitor pt closely.
--- NOTE | 2018-12-06 00:24 | NUR ---
Pt resting comfortably in bed at this time. Pt arm is elevated, swelling in right thumb has improved. Will continue to monitor.
--- NOTE | 2018-12-06 03:02 | NUR ---
Repositioned pt in bed at this time. Right arm continues to be elevated and is in wrist immobilizer. Cath site reassessed at this time. Site continues to be bruised with purple and blue discoloration. Right thumb swelling improving. Pt has no c/o pain at this time. Will continue to monitor.
[2018-12-06 05:02] VITALS: BP 135/60
[2018-12-06 05:36] LABS: BASOPHILS % 0.3 % (0.0-1.0); EOSINOPHILS # (AUTO) 0.1 (0.0-0.4); EOSINOPHILS % 0.8 % (0.0-6.0); HEMATOCRIT 34.2 % (34.2-44.1); HEMOGLOBIN 11.6 g/dL (12.0-16.0); LYMPHOCYTES # (AUTO) 0.6 (1.0-3.2); LYMPHOCYTES % 9.6 % (18.0-39.1); MEAN CORPUSCULAR HEMOGLOBIN 32.5 pg (28-32); MEAN CORPUSCULAR HGB CONC 33.9 g/dL (31-35); MEAN CORPUSCULAR VOLUME 95.8 fL (81-99); MONOCYTES # (AUTO) 0.5 (0.2-0.8); MONOCYTES % 7.7 % (4.4-11.3); NEUTROPHILS # (AUTO) 5.2 (2.1-6.9); NEUTROPHILS % 81.1 % (38.7-80.0); PLATELET COUNT 132 x10e3/uL (140-360); RED BLOOD COUNT 3.57 x10e6/uL (3.6-5.1); RED CELL DISTRIBUTION WIDTH 12.9 % (11.7-14.4)
[2018-12-06 05:54] LABS: ANION GAP 11.4 mmol/L (8-16); BLOOD UREA NITROGEN 24 mg/dL (7-26); BUN/CREATININE RATIO 41 (6-25); CARBON DIOXIDE 25 mmol/L (22-29); CHLORIDE 97 mmol/L (98-107); CREATININE, SERUM 0.58 mg/dL (0.57-1.11); EST GLOMERULAR FILTRATION RATE > 60 ML/MIN (60-); GLUCOSE 98 mg/dL (74-118); POTASSIUM 3.4 mmol/L (3.5-5.1); SODIUM 130 mmol/L (136-145)
--- NOTE | 2018-12-06 07:07 | NUR ---
Bedside shift report performed with CECY Lin dayshift nurse. Pt is in no apparent distress. Right wrist cath site assessed with dayshift RN at this time. Site still discolored with purple and blue bruising. Right thumb has improved but still swollen 1+. Wrist immobilizer is in place. Call light is in reach of patient.
--- NOTE | 2018-12-06 07:19 | Progress Note ---
DATE: 12/06/2018 SUBJECTIVE: The patient came with acute congestive heart failure. The patient underwent a cardiac catheterization yesterday, radial catheterization. The patient had a drug-eluting stent and the PCI with moderate amount of coronary vessel burden. The patient currently is asymptomatic. No chest pain, but complains of some shortness of breath on exertion. Has been getting out of bed, but today we will have Physical Therapy to evaluate her debility. OBJECTIVE: VITAL SIGNS: Temperature is 96.0 afebrile for the last 48 hours, respirations 16, blood pressure is 135/60, and pulse oximetry of 99%. HEENT: Normocephalic and atraumatic. Pupils are reactive to light and accommodation. CVS: S1 and S2. Regular rate and rhythm. Ejection systolic murmur. ABDOMEN: Nontender and nondistended. EXTREMITIES: No clubbing, no cyanosis, no edema. Right upper extremity is in a splint positive for ecchymosis where the PCI was done. MEDICATIONS: Atorvastatin, Valium as needed, ropinirole, carvedilol 3.125 mg twice a day, hydroxychloroquine, aspirin, furosemide 20 mg daily, levothyroxine 100 mcg daily, and clopidogrel 75. LABORATORY VALUES: Today's white count was 6.38, hemoglobin of 11.6, and hematocrit of 34.2. Slight left shift present to 81.81, but no leukocytosis. Chemistries; sodium 130, potassium 3.4, BUN 24 and creatinine 0.58, and eGFR was 60. ASSESSMENT: 1. Severe acute congestive heart failure. 2. Status post PCI with RCA drug-eluting stent. 3. Left bundle-branch block. 4. Sjogren syndrome. 5. Hypokalemia. 6. Severe debility. 7. Hypertension. PLAN: We will continue with Lasix, probably we will have to increase it to 40 mg and watch her BUN and creatinine on a daily basis. The patient was unable to tolerate Entresto. We will continue staying off the Entresto with EF of 20%. Cardiology has recommended a LifeVest and will talk to the family members about it and status post radial site access for drug-eluting stent and PCI. Further recommendation per clinical course. Today's plan will be to walk the patient and see if she meets criteria for SNF admission. The patient wants to go to rehab to rehabilitate. Further recommendation per clinical course. We will continue to monitor the patient and put in the Physical Therapy consult and also for SNF consult. MD DILCIA Macias/MODL /[id number]
[2018-12-06] MEDS ORDERED: POTASSIUM CHLORIDE 20 MEQ TAB CR PO ONE ×2 (07:20→08:47)
[2018-12-06 08:17] VITALS: BP 115/60
[2018-12-06 08:20] LABS: PLATELET ESTIMATE ADEQUATE
[2018-12-06] MEDS: HYDROXYCHLOROQUINE SULFATE 200 MG TAB PO SCH ×2 (09:00→16:01)
[2018-12-06] MEDS: CLOPIDOGREL BISULFATE 75 MG TAB PO SCH (09:00)
[2018-12-06] MEDS: CARVEDILOL 3.125 MG TAB PO SCH ×2 (09:00→20:34)
[2018-12-06] MEDS: LEVOTHYROXINE SODIUM 100 MCG TAB PO SCH (09:00)
[2018-12-06] MEDS: FUROSEMIDE 20 MG TAB PO SCH (09:00)
[2018-12-06] MEDS: ASPIRIN 81 MG CHEW TAB PO SCH (09:00)
[2018-12-06 09:11] VITALS: BP 115/60
--- NOTE | 2018-12-06 11:50 | NUR ---
PT SIGNED CHOICE FOR [facility], WAITING ON PT NOTES, FAXED WHAT I HAVE TO START REFERRAL. FILED CHOICE IN CHART.
[2018-12-06 12:00] VITALS: BP 125/54
--- NOTE | 2018-12-06 15:16 | Progress Note ---
DATE: 11/30/2018 Cardiology Progress Note SUBJECTIVE: Denies any chest discomfort or shortness of breath. OBJECTIVE: VITAL SIGNS: Reviewed. Temperature 95 degrees, heart rate 77, blood pressure 115/60, respiratory rate 20, O2 saturation 98%. GENERAL: In no acute distress, alert. NECK: No JVD. CHEST: Clear to auscultation. CARDIOVASCULAR: Regular rate and rhythm. Normal S1, S2. No S3 or S4. ABDOMEN: Soft and nontender. EXTREMITIES: No edema. CARDIOVASCULAR MEDICATIONS: Reviewed. Carvedilol 3.125 mg every 12 hours, furosemide 20 mg p.o. daily, aspirin 81 mg daily, atorvastatin 40 mg at bedtime, clopidogrel 75 mg daily. STUDIES: Reviewed. Sodium 130, potassium 3.4, chloride 97, bicarbonate 25, BUN 24, creatinine 0.58, glucose 98. White blood cells 6.3, hemoglobin 11.6, platelets 132. INR 0.9. AST 80, ALT 92, alkaline phosphatase 86, total bilirubin 0.6. ASSESSMENT: 1. Acute severe systolic heart failure. 2. Left bundle branch block. 3. Sjogren's syndrome. RECOMMENDATIONS: 1. Coronary artery disease, status post drug-eluting stent percutaneous coronary intervention for right coronary artery. Continue dual antiplatelet therapy with aspirin and Plavix as well as statin. 2. Heart failure, volume welsh improved. Continue with the maintenance dose of Lasix, daily weights, low-sodium diet and continue beta-kimmy low dose. Unable to tolerate ALENA inhibitor, ARB, or Entresto in light of hypotension when receiving medications and otherwise low normal blood pressure read at baseline. 3. Suspected dementia. Outpatient workup advised. 4. Deconditioning. Undergoing evaluation by PTT and possible transfer to [facility]. 5. Upon discharge, I have arranged for LifeVest placement. The patient and family requesting. 6. Outpatient followup advised in two to four weeks post discharge. MD ELIU Duenas/SIDNEY /[id number]
--- NOTE | 2018-12-06 16:30 | NUR ---
SPOKE TO [facility] REP STATES SHE WILL BE HERE IN AM OR CALL TO SET UP TIME TO COME IN FOR FITTING AND [facility].
[2018-12-06 16:47] VITALS: BP 102/71
[2018-12-06 20:19] VITALS: BP 124/53
[2018-12-06] MEDS: ATORVASTATIN 40 MG TAB PO SCH (20:33)
[2018-12-06] MEDS: DIAZEPAM 5 MG TAB PO SCH (20:34)
[2018-12-06] MEDS: ROPINIROLE HCL 0.25 MG TAB PO SCH (20:34)
[2018-12-07] VITALS (10 sets, daily range): BP systolic 101–112; BP diastolic 51–73
[2018-12-07] MEDS: ACETAMINOPHEN 325 MG TAB PO PRN (05:24)
[2018-12-07 05:45] LABS: ANION GAP 13.7 mmol/L (8-16); BLOOD UREA NITROGEN 21 mg/dL (7-26); BUN/CREATININE RATIO 38 (6-25); CALCIUM 7.9 mg/dL (8.4-10.2); CARBON DIOXIDE 23 mmol/L (22-29); CHLORIDE 97 mmol/L (98-107); CREATININE, SERUM 0.56 mg/dL (0.57-1.11); EST GLOMERULAR FILTRATION RATE > 60 ML/MIN (60-); GLUCOSE 94 mg/dL (74-118); POTASSIUM 3.7 mmol/L (3.5-5.1); SODIUM 130 mmol/L (136-145)
--- NOTE | 2018-12-07 07:00 | NUR ---
Report given to CECY Giles dayshift nurse.
--- NOTE | 2018-12-07 07:05 | NUR ---
PT RESTING IN BED AA0X3 PT IS IN NO S.S OF DISTRESS DENIES PAIN PT RIGHT WRIST REMAINS BRUISED. NOT BLEEDING PT HAS AN IV TO HER LEFT WRIST AND FA DRY PATENT AND INTACT PT HAS A SONI DRAINING CLEAR YELLOW URINE. WILL CONTINUE TO MONITOR PT AT THIS TIME SIDE [id number], BED WHEELS LOCKED ,CALL LIGHT IS WITHIN EASY REACH INSTRUCTED TO CALL FOR ASSISTANCE IF NEEDED
--- NOTE | 2018-12-07 07:09 | Progress Note ---
DATE: 12/07/2018 SUBJECTIVE: The patient is a 78-year-old female, comes in with acute congestive heart failure, status post PCI. Currently asymptomatic. No chest pain. Positive for some shortness of breath, but not as bad as when she came in. No nausea, vomiting, or diarrhea. No constipation. No rectal bleeding. No hematochezia. The patient is awaiting a LifeVest for low EF. OBJECTIVE: VITAL SIGNS: Temperature is 97, pulse of 70, respirations of 18, blood pressure is 104/58, pulse oximetry of 98%. HEENT: Normocephalic, atraumatic. Pupils are reactive to light and accommodation. CVS: S1 and S2 are normal. Regular rate and rhythm. Ejection systolic murmur. ABDOMEN: Nontender, nondistended. LUNGS: Positive for some crackles at lung bases. EXTREMITIES: No clubbing. No cyanosis. Positive for trace edema. MEDICATIONS: Acetaminophen, carvedilol 3.125, ropinirole 0.25, Valium 5 mg as needed, aspirin 81 mg, 20 mg of Lasix, levothyroxine, and Zofran as needed. LABORATORY DATA: The patient's urine culture was negative, no growth in 36 to 48 hours. ASSESSMENT: 1. Severe acute congestive heart failure. 2. Status post PCI with RCA drug-eluting stent. 3. Left bundle-branch block. 4. Hypokalemia, resolved. 5. Sjogren syndrome. 6. Severe debility. 7. Hypertension. 8. History of anxiety. PLAN: We will continue with 20 mg of Lasix. Awaiting LifeVest at this time as soon as consult has been done. The patient is offered for Entresto secondary to low blood pressure. We will continue to monitor the patient. She will need Cardiology services as an outpatient. We will discuss with Dr. Engle. Further recommendation per clinical course. Prognosis has remained guarded. MD HAILEY MaciasJ/MODL /[id number]
[2018-12-07] MEDS: LEVOTHYROXINE SODIUM 100 MCG TAB PO SCH (07:23)
[2018-12-07] MEDS: ASPIRIN 81 MG CHEW TAB PO SCH (08:47)
[2018-12-07] MEDS: HYDROXYCHLOROQUINE SULFATE 200 MG TAB PO SCH ×2 (08:48→17:19)
[2018-12-07] MEDS: CLOPIDOGREL BISULFATE 75 MG TAB PO SCH (08:48)
[2018-12-07] MEDS: FUROSEMIDE 20 MG TAB PO SCH (08:48)
[2018-12-07] MEDS: CARVEDILOL 3.125 MG TAB PO SCH ×2 (08:48→21:24)
--- NOTE | 2018-12-07 09:42 | NUR ---
MD NIKOLE SONI AT THIS TIME
--- NOTE | 2018-12-07 10:02 | NUR ---
MADALYN SONI AT THIS TIME
--- NOTE | 2018-12-07 11:31 | Progress Note ---
DATE: 12/07/2018 Cardiology Progress Note SUBJECTIVE: No complaints today. OBJECTIVE: VITAL SIGNS: Temperature 97 degrees, heart rate 78, respiratory rate 18, blood pressure 108/66, O2 saturation 98%. GENERAL: No acute distress, alert. NECK: No JVD. CHEST: Clear to auscultation. CARDIOVASCULAR: Regular rate and rhythm. Normal S1 and S2. No S3 or S4. No murmur. No rubs. ABDOMEN: Soft, nontender. EXTREMITIES: No edema. CARDIOVASCULAR MEDICATIONS: Reviewed. 1. Aspirin 81 mg daily. 2. Carvedilol 3.125 mg every 12 hours. 3. Atorvastatin 40 mg at bedtime. 4. Clopidogrel 75 mg daily. 5. Furosemide 20 mg p.o. daily. 6. Aspirin 81 mg daily. STUDIES: Reviewed. Sodium 130, potassium 3.7, chloride 97, bicarbonate is 23, BUN is 21, creatinine 0.56, glucose 94. White blood cells 6.3, hemoglobin 11.6, platelets 132. INR 0.9. AST 80, ALT 92, alkaline phosphatase 86. ASSESSMENT: 1. A 78-year-old woman with severe systolic heart failure with high-risk features, mainly left ventricular ejection fraction 20%, restrictive filling pattern, hyponatremia, elevated BUN to creatinine ratio, difficulty tolerating heart failure medications due to drops in blood pressure. 2. Sjogren syndrome. 3. Debility and deconditioning. 4. Borderline liver function tests. 5. Coronary artery disease, status post drug-eluting stent PCI to ostium of RCA. RECOMMENDATIONS: 1. Continue current cardiovascular medications. 2. Not a candidate for Entresto, ALENA inhibitor, or ARB at this point, given issues with low blood pressure reads when attempting to use these medications. 3. She seems to be euvolemic on exam. 4. Monitor LFTs as outpatient. If continue to elevate for three times above normal limits, please hold atorvastatin then. 5. Outpatient followup advised in 4 weeks post discharge. 6. The patient prefers to proceed with LifeVest, which has been initiated. Undergoing evaluation for possible rehab. MD ELIU Duenas/MODPamela /[id number]
--- NOTE | 2018-12-07 11:39 | NUR ---
[facility] TEAM ARRIVED AND DELIVERED PT SUPPLY. FAMILY IN ROOM WHILE VEST INSTRUCTIONS WERE GIVEN
--- NOTE | 2018-12-07 12:00 | NUR ---
pt voided into diaper after tavarez removal
--- NOTE | 2018-12-07 15:17 | NUR ---
[facility] AT BEDSIDE. [facility].
--- NOTE | 2018-12-07 19:09 | NUR ---
Beside report and walking rounds complete. Right arm site assessed with day shift RN. Area still blue/purple with dressing intact and small area of blood but no active bleeding present. All safety measures ensured and pt call moreno near. Pt encouraged to use call moreno for assistance.
--- NOTE | 2018-12-07 20:29 | Operative Report ---
DATE OF PROCEDURE: 12/05/2018 SURGEON: Jae Macias MD PROCEDURE INDICATION: Acute severe systolic heart failure, new diagnosis and angina pectoris. PROCEDURES PERFORMED: 1. Left heart catheterization. 2. Selective coronary angiography. 3. Right radial TR band hemostasis. 4. Ultrasound-guided access. 5. Ostial RCA drug-eluting stent PCI using Resolute Gotha 4.0 x 15 drug-eluting stent, post dilated with a 4.0 and 4.5 NC Quantum balloons. PROCEDURE COMPLICATIONS: None. ESTIMATED BLOOD LOSS: Less than 15 mL. PROCEDURE SUMMARY: After consent was obtained, the patient was prepped and draped in a sterile fashion. The right radial site was locally infiltrated with 2% lidocaine. Access was obtained and a 5-Welsh outer diameter Slender sheath was advanced and 300 mcg of nitroglycerin and heparin was administered via the sheath. Additional heparin was administered afterwards to maintain ACT over 250 throughout the PCI. TIG catheter was used for engagement of left main, right coronary artery, as well as across the aortic valve for hemodynamic measurements. It was decided to proceed with intervention to the right coronary artery, which was performed using a JR4 with side-holes guide catheter as well as a Runthrough wire to cross the area of stenosis. Predilatation of an ostial target lesion was performed with [employer] Emerge balloon 2.0 x 8, inflated to 12 atmospheres across the target lesion. This was followed by Resolute Puneet 4.0 x 15 drug-eluting stent deployed across the target lesion to nominal pressure followed by post dilatation with an NC Quantum [place] 4.0 x 12 balloon to 18 atmospheres and an additional ostial stent post dilatation with an NC Quantum [place] 4.5 x 8 to nominal pressure. Preprocedure target RCA lesion, severity was 90% with HILARIA-2 flow. Post procedure, residual stenosis less than 10% with HILARIA-3 flow. No flow-limiting dissections or perforations observed. Excellent final angiographic results. FINDINGS: 1. LV pressure is 102/3 with end-diastolic pressure of 12. 2. Aortic pressure was 96/53. 3. No left ventriculogram was performed. 4. Left main is large in caliber with 30% mid stenosis giving an LAD, ramus intermedius, and circumflex. 5. The LAD has proximal less than mid 30% stenosis, it gives multiple septal perforators and diagonals. 6. The ramus intermedius is small to medium in caliber with a focal mid 50% stenosis. 7. The circumflex gives two obtuse marginals. The first of which has 50% ostial or proximal stenosis. 8. The right coronary artery is dominant. It has ostial 90% to 95% stenosis with HILARIA-2 preintervention. This is a target lesion. In the mid RCA, there is 30% additional focal stenosis. It is tubular in length. There are two RV marginals and a terminal RPDA and RPLV. CONCLUSION: RCA drug-eluting stent PCI for ostial stenosis. Otherwise, mild to moderate residual multivessel coronary artery disease. RECOMMENDATIONS: Aggressive medical therapy and optimal management for severe systolic heart failure and dual antiplatelet therapy with aspirin and Plavix. Wean TR band as per protocol. MD ELIU Duensa/SIDNEY /[id number]
[2018-12-07] MEDS: ATORVASTATIN 40 MG TAB PO SCH (21:00)
--- NOTE | 2018-12-07 21:20 | NUR ---
Right arm site assessed. No active bleeding and site still intact. Pt asked to use wrist immobilizer and was placed on pt arm prior to going to sleep. Pt has no complaints at this time.
[2018-12-07] MEDS: ROPINIROLE HCL 0.25 MG TAB PO SCH (21:24)
[2018-12-07] MEDS: DIAZEPAM 5 MG TAB PO SCH (21:24)
[2018-12-08] VITALS (8 sets, daily range): BP systolic 97–123; BP diastolic 49–90
--- NOTE | 2018-12-08 03:57 | NUR ---
Pt BP 88/51. Pt A&O and in no apparent distress and not lethargic. Raised HOB for pt to be seated up, repeated BP manually and result of 118/60. Repeated automatic BP and result of 110/74. Assessed pt right arm site, still intact with no signs of active bleeding. Bruised areas on right arm marked previously with no change.
[2018-12-08] MEDS: ACETAMINOPHEN 325 MG TAB PO PRN ×2 (04:18→15:23)
--- NOTE | 2018-12-08 07:00 | NUR ---
PT RESTING IN BED AA0X3 PT IS IN NO S.S OF DISTRESS DENIES PAIN PT RIGHT WRIST REMAINS BRUISED. NOT BLEEDING PT HAS AN IV TO HER LEFT WRIST DRY PATENT AND INTACT PT VOIDING INTO TOILET WITH DIAPER IN PLACE FOR TROUBLE WITH INCONTINENCE WILL CONTINUE TO MONITOR PT AT THIS TIME SIDE RAILSX2, BED WHEELS LOCKED ,CALL LIGHT IS WITHIN EASY REACH
[2018-12-08] MEDS: CLOPIDOGREL BISULFATE 75 MG TAB PO SCH (08:12)
[2018-12-08] MEDS: CARVEDILOL 3.125 MG TAB PO SCH ×2 (08:12→19:35)
[2018-12-08] MEDS: FUROSEMIDE 20 MG TAB PO SCH (08:12)
[2018-12-08] MEDS: ASPIRIN 81 MG CHEW TAB PO SCH (08:39)
[2018-12-08] MEDS: LEVOTHYROXINE SODIUM 100 MCG TAB PO SCH (09:00)
--- NOTE | 2018-12-08 09:32 | Diagnostic Imaging Report ---
EXAMINATION: CHEST SINGLE (PORTABLE) INDICATION: Shortness of breath COMPARISON: Chest radiographs most recently of 12/01/2018 FINDINGS: LINES/TUBES:EKG leads overlie the chest. LUNGS:The lungs are moderately inflated. There is perihilar fullness and indistinctness of the pulmonary vasculature. There is left basilar opacity silhouetting the left berlin diaphragm. PLEURA:Likely small left pleural effusion. No pneumothorax. MEDIASTINUM:Cardiomediastinal silhouette is stably enlarged. Atherosclerotic calcifications of the thoracic aorta. BONES/SOFT TISSUES:No acute osseous injury. ABDOMEN:No free air under the diaphragm. IMPRESSION: Pulmonary interstitial edema. Unchanged cardiomegaly. Airspace opacity at the left lung base more likely represents subsegmental atelectasis than superimposed aspiration or pneumonia. Signed by: Aleshia Harrell MD on 12/08/2018 9:28 AM
--- NOTE | 2018-12-08 09:52 | Progress Note ---
DATE: 12/08/2018 SUBJECTIVE: The patient is here for acute congestive heart failure, status post PCI. Currently complains of some congestion. No chest pain. No shortness of breath. OBJECTIVE: VITAL SIGNS: Temperature is 95.6, pulse of 71, blood pressure is 110/74, and pulse ox 97%. HEENT: Normocephalic and atraumatic. Pupils are reactive to light and accommodation. CVS: S1 and S2 normal. Regular rate and rhythm. ABDOMEN: Nontender and nondistended. LUNGS: Positive for bilateral lower lobe crackles. The patient had a LifeVest placed yesterday. LABORATORY VALUES: None done today. The patient's microbiology, urine cultures are negative. ASSESSMENT: 1. Acute on chronic congestive heart failure with severely low ejection fraction of 20%. 2. Sjogren syndrome. 3. Debility. 4. Coronary artery disease, status post drug-eluting stent. PLAN: Continue current medication. Continue with diuresis. The patient has debility. We will go ahead and send her to a SNF with a LifeVest. The patient can be discharged when bed is available. Further recommendation per clinical course. The patient will need further workup as an outpatient and Dr. Engle will be the Hand Folder. MD DILCIA Macias/SIDNEY /[id number]
--- NOTE | 2018-12-08 11:15 | NUR ---
SPOKE WITH JAELYN FROM FACILITY TO GET UPDATE ON REFERRAL TO SNF, WILL FAX UPDATES AND STILL WAITING ON AUTH.
--- NOTE | 2018-12-08 14:22 | NUR ---
COMPLETED RTF AND PASRR FILED COPY IN PACKET AND ORIGINAL IN CHART.
--- NOTE | 2018-12-08 14:32 | NUR ---
Nutrition Follow-up Note RD Recommendation for Physician: - Continue diet as ordered Plan of Care: Patient has been screened and assessed for nutrition risk. At this time, the patient does not pose any nutrition risk. No further nutrition intervention is warranted at this time. Will re-evaluate if consulted by medical staff. Nutrition reason for involvement: Follow up Primary Diagnose(s): Congestive heart failure, new onset PMH: hypertension, Sjogren's syndrome, sicca syndrome, anxiety, hypothyroidism, constipation, hypertension and restless legs syndrome. Ht: 64in Wt: 123lb; 121.06lb BMI: 21.1kg/m2 IBW: 120lb +/- 10% RD Assessment: (12/08) Pt was discussed during AM rounds. Pending placement. Visited pt in the room. Pt reported good appetite with ~75% meal intake. No GI complains reported. Current diet is appropriate and adequate. (12/01) Chart reviewed. Labs and meds reviewed. 78yo F, who was admitted for new onset CHF. Currently on IV diuresis, strict I's/ O's, and fluid restriction of 1000 mL. Visited pt in the room. Pt reported good appetite prior to and during hospital stay. Pt denied any chewing or swallowing difficulty. No complains of nausea or vomiting. RD offered education on low sodium diet and pt was agreeable. All questions have been answered. Current Diet: cardiac diet Malnutrition Evaluation (12/01/2018) The patient does not meet criteria for a specified degree of malnutrition at this time. Will re-evaluate at follow-up as appropriate. Diet Education Needs Assessment: Diet education indicated, pt was agreeable. Learner(s): pt Time spent: 15mins Barriers: No barriers identified. Cultural/Language Modifications: No cultural/language modifications noted. Pt speaks Fijian. Readiness: Acceptance Method: Handouts, explanation Topics: Heart failure nutrition therapy sodium, fluids restriction, weight management Understanding/Compliance: Expect fair understanding/compliance from pt. Will benefit from reinforcement. Nutrition Care Level: low Signed: Sunita Land, MS, RD, LD
[2018-12-08] MEDS: ATORVASTATIN 40 MG TAB PO SCH (19:55)
[2018-12-08] MEDS: ROPINIROLE HCL 0.25 MG TAB PO SCH (19:55)
--- NOTE | 2018-12-08 20:12 | NUR ---
Valium medication . Spoke with gris Ha to renew.
[2018-12-08] MEDS: DIAZEPAM 5 MG TAB PO PRN (20:23)
--- NOTE | 2018-12-08 20:35 | Progress Note ---
DATE: 12/08/2018 Cardiology Progress Note SUBJECTIVE: She had episode of lightheadedness and blood pressure reading in the 80s to 90s earlier today. Now, symptoms resolved. Blood pressure normalized. Denies chest pain or shortness of breath. OBJECTIVE: VITAL SIGNS: Temperature 96.9, heart rate 77, blood pressure 100/57, respiratory rate 18, O2 saturation 98% on room air. GENERAL: In no acute distress, alert. NECK: No JVD. CHEST: Clear to auscultation. CARDIOVASCULAR: Regular rate and rhythm, normal S1 and S2, no S3 or S4. ABDOMEN: Soft and nontender. EXTREMITIES: No edema. Warm distal extremities. CARDIOVASCULAR MEDICATIONS: Reviewed. 1. Atorvastatin 40 mg at bedtime. 2. Clopidogrel 75 mg daily. 3. Furosemide 20 mg p.o. daily. 4. Carvedilol 3.125 mg every 12 hours. 5. Aspirin 81 mg daily. STUDIES: Reviewed. Sodium 130, potassium 3.7, chloride 97, bicarbonate 23, BUN 21, creatinine 0.56, glucose 94. White blood cell 6.3, hemoglobin 11.6, platelets 132. INR 0.9. AST 80, ALT 92, alkaline phosphatase 86, total bilirubin 0.5. ASSESSMENT: 1. A 78-year-old woman with severe systolic heart failure, [id number]. 2. Hypertension. 3. Dyslipidemia. 4. Coronary artery disease, status post right coronary artery drug-eluting stent percutaneous coronary intervention. RECOMMENDATIONS: Continue current cardiovascular medications, dual antiplatelet therapy, statin and beta-kimmy with the following changes: 1. Hold beta-kimmy for systolic blood pressure less than 100 or heart rate less than 55. 2. Hold Lasix for systolic blood pressure less than 90. 3. The patient has received instructions and being fitted for LifeVest, which has been delivered. Encouraged to use as much as possible upon discharge. 4. Outpatient followup advised. MD ELIU Duenas/SIDNEY /[id number]
[2018-12-09] VITALS (8 sets, daily range): BP systolic 108–120; BP diastolic 64–69
[2018-12-09] MEDS: LEVOTHYROXINE SODIUM 100 MCG TAB PO SCH (06:05)
--- NOTE | 2018-12-09 06:49 | Progress Note ---
DATE: SUBJECTIVE: The patient is a 78-year-old female, who comes in with acute congestive heart failure with EF of 20%. The patient is currently asymptomatic. Shortness of breath is improved on Lasix. The patient was scheduled to be discharged to SNF. At this point of time, case Management is working on discharge planning. Currently asymptomatic. Short of breath on exertion, otherwise within normal limits. The patient has no chest pains. OBJECTIVE: VITAL SIGNS: Temperature is 95.9, pulse of 79, respirations of 18, blood pressure is 120/66, pulse oximetry of 97% on room air. HEENT: Normocephalic, atraumatic. Pupils are reactive to light and accommodation. CVS: S1 and S2 normal. Regular rate and rhythm. ABDOMEN: Nontender, nondistended. EXTREMITIES: Positive for trace edema. IMAGING STUDIES: Done from yesterday shows pulmonary interstitial edema, unchanged cardiomegaly, and questionable airspace opacities representing atelectasis. ASSESSMENT: 1. Pvxij-[id number] congestive heart failure with severely low ejection fraction. The patient is on a LifeVest at this time. Physical Therapy recommendation for rehab and SNF and will be transferred when bed available. 2. Sjogren syndrome. 3. Debility. 4. Coronary artery disease, status post drug-eluting stent. PLAN: Plan again would be to continue transfer to SNF with LifeVest. Dr. Engle to see her as an outpatient. We will continue monitoring her cardiac events. Lytes will be checked if she is still here tomorrow. Further recommendation per clinical course. We will continue to monitor the patient along with Cardiology. MD DILCIA Macias/MODL /[id number]
--- NOTE | 2018-12-09 07:10 | NUR ---
Received patient mid fowlers position, side rails upx2, call light within reach, daughter at bedside. AAOx3 to time, person, place. Patient forgetful. Instructed to use call light for assistance. Voiced understanding.
[2018-12-09] MEDS: ASPIRIN 81 MG CHEW TAB PO SCH (08:49)
[2018-12-09] MEDS: CARVEDILOL 3.125 MG TAB PO SCH ×2 (08:49→21:32)
[2018-12-09] MEDS: CLOPIDOGREL BISULFATE 75 MG TAB PO SCH (08:50)
[2018-12-09] MEDS: FUROSEMIDE 20 MG TAB PO SCH (08:50)
--- NOTE | 2018-12-09 09:30 | NUR ---
Patient states " I take plaquenil twice a day. I have not gotten it. I need to take it every day." Page to receive clarification.
--- NOTE | 2018-12-09 11:45 | NUR ---
Repaged to get clarification on plaquenil
--- NOTE | 2018-12-09 12:30 | Progress Note ---
DATE: 12/09/2018 Cardiology Progress Note SUBJECTIVE: Jessica denies any chest discomfort or shortness of breath today. She has continued to have dry cough, however, is now using incentive spirometer frequently with some improvement. OBJECTIVE: VITAL SIGNS: Temperature 97.7, heart rate 79, blood pressure 108/64, respiratory rate 18, O2 saturation 97%, BMI 20.7. GENERAL: In no acute distress, alert, active. NECK: No JVD. CHEST: Clear to auscultation. CARDIOVASCULAR: Regular rate and rhythm, normal S1, S2, no S3 or S4. ABDOMEN: Soft, nontender. EXTREMITIES: No edema. CARDIOVASCULAR MEDICATIONS: Reviewed. Atorvastatin 40 mg at bedtime, clopidogrel 75 mg daily, aspirin 81 mg daily, carvedilol 3.125 mg every 12 hours. LABORATORY DATA: Studies reviewed. Sodium 130, potassium 3.7, chloride 97, bicarbonate 23, BUN 21, creatinine 0.56, glucose 94, hemoglobin 11.6, white blood cell 6.3, platelets 132. INR 0.93. AST 80, ALT 92. ASSESSMENT: 1. A 78-year-old woman with severe acute on chronic systolic heart failure. 2. Coronary artery disease, status post right coronary artery drug-eluting stent percutaneous coronary intervention. 3. Hypothyroidism. 4. Sjogren syndrome. 5. Mild thrombocytopenia. RECOMMENDATIONS: 1. Monitor platelet counts and hemoglobin. 2. Monitor liver function tests. If elevation more than three times above normal, please hold statin. 3. Continue beta-kimmy at current dose. 4. Unable to tolerate ALENA inhibitor, ARB or Entresto given low normal blood pressure read. 5. Seems to be euvolemic on exam. Continue Lasix at current dose 20 mg p.o. daily and monitor daily weight. Maintain a low-sodium diet and fluid restrict less than 1.2 L daily given hyponatremia. 6. Outpatient followup upon discharge at three months, repeat echocardiogram to consider candidacy for ICD. 7. Rehab evaluation ongoing. MD ELIU Duenas/SIDNEY /[id number]
--- NOTE | 2018-12-09 14:43 | NUR ---
KEN GREEN GAVE REPORT REGARDING PATIENT DISCHARGE PLAN. PATIENT DENIED PLACEMENT AT [facility]. JACOBE WITH [facility] WAS GIVEN ATTENDING NUMBER FOR PEER TO PEER. PENDING AUTH OR UPHELD DENIAL TO MOVE FORWARD. [facility] Address: [address], [place] [address]
[2018-12-09] MEDS: HYDROXYCHLOROQUINE SULFATE 200 MG TAB PO SCH (15:45)
[2018-12-09] MEDS: BISACODYL 5 MG TAB EC PO SCH ×2 (15:45→23:55)
[2018-12-09] MEDS: ONDANSETRON HCL 4 MG ORAL DISINTEGRATING TAB PO PRN (19:10)
--- NOTE | 2018-12-09 19:10 | NUR ---
c/o nausea PRN zofran given. Resting in bed, side rails upx2, call light within reach. Reminded patient to use call light for assistance. Voiced understanding. Bedside report given to oncoming nurse.
--- NOTE | 2018-12-09 19:51 | NUR ---
PATIENT RESTING IN BED AT THIS TIME, STATES THAT HER NAUSEA IS DOING BETTER LONG SHE SITS STILL. LUNG SOUNDS CLEAR, BOWEL SOUNDS ACTIVE, BUT NO BM IN A FEW DAYS. MINIMAL EDEMA NOTED TO BLE, PULSES PALPABLE. NO PAIN REPORTED. NO S&S OF DISTRESS NOTED. BED LOCKED IN LOWEST POSITION, SIDE RAILS UPX2, CALL LIGHT IN REACH.
[2018-12-09] MEDS: ROPINIROLE HCL 0.25 MG TAB PO SCH (21:32)
[2018-12-09] MEDS: ATORVASTATIN 40 MG TAB PO SCH (21:32)
[2018-12-09] MEDS: DIAZEPAM 5 MG TAB PO PRN (21:40)
[2018-12-10] VITALS (8 sets, daily range): BP systolic 105–117; BP diastolic 59–73
[2018-12-10] MEDS: BISACODYL 5 MG TAB EC PO SCH ×4 (06:18→18:00)
[2018-12-10] MEDS: LEVOTHYROXINE SODIUM 100 MCG TAB PO SCH (06:18)
[2018-12-10 06:55] LABS: ANION GAP 14.8 mmol/L (8-16); BLOOD UREA NITROGEN 21 mg/dL (7-26); BUN/CREATININE RATIO 31 (6-25); CALCIUM 8.4 mg/dL (8.4-10.2); CARBON DIOXIDE 25 mmol/L (22-29); CHLORIDE 95 mmol/L (98-107); CREATININE, SERUM 0.67 mg/dL (0.57-1.11); EST GLOMERULAR FILTRATION RATE > 60 ML/MIN (60-); GLUCOSE 97 mg/dL (74-118); POTASSIUM 3.8 mmol/L (3.5-5.1); SODIUM 131 mmol/L (136-145)
[2018-12-10 06:58] LABS: BASOPHILS % 0.4 % (0.0-1.0); EOSINOPHILS # (AUTO) 0.1 (0.0-0.4); EOSINOPHILS % 1.3 % (0.0-6.0); HEMATOCRIT 36.8 % (34.2-44.1); HEMOGLOBIN 12.2 g/dL (12.0-16.0); LYMPHOCYTES # (AUTO) 0.8 (1.0-3.2); LYMPHOCYTES % 15.9 % (18.0-39.1); MEAN CORPUSCULAR HGB CONC 33.2 g/dL (31-35); MEAN CORPUSCULAR VOLUME 96.6 fL (81-99); MONOCYTES # (AUTO) 0.3 (0.2-0.8); MONOCYTES % 7.2 % (4.4-11.3); NEUTROPHILS # (AUTO) 3.5 (2.1-6.9); PLATELET COUNT 219 x10e3/uL (140-360); RED BLOOD COUNT 3.81 x10e6/uL (3.6-5.1); RED CELL DISTRIBUTION WIDTH 12.7 % (11.7-14.4)
[2018-12-10] MEDS: CARVEDILOL 3.125 MG TAB PO SCH ×2 (09:07→20:51)
[2018-12-10] MEDS: FUROSEMIDE 20 MG TAB PO SCH (09:07)
[2018-12-10] MEDS: ASPIRIN 81 MG CHEW TAB PO SCH (09:07)
[2018-12-10] MEDS: HYDROXYCHLOROQUINE SULFATE 200 MG TAB PO SCH ×2 (09:08→19:09)
[2018-12-10] MEDS: CLOPIDOGREL BISULFATE 75 MG TAB PO SCH (09:08)
[2018-12-10] MEDS: ONDANSETRON HCL 4 MG ORAL DISINTEGRATING TAB PO PRN (09:45)
--- NOTE | 2018-12-10 11:32 | NUR ---
Held 1200 laxative patient 2 large bowel movements
--- NOTE | 2018-12-10 12:38 | Progress Note ---
DATE: 12/10/2018 Cardiology Progress Note SUBJECTIVE: Nauseated with diarrhea earlier today, now feeling better. Denies any chest pain or shortness of breath. OBJECTIVE: VITAL SIGNS: Temperature 97.3, heart rate 78, respiratory rate 18, blood pressure 117/73, and O2 saturation 98%. GENERAL: In no acute distress. Alert. NECK: No JVD. CHEST: Clear to auscultation. CARDIOVASCULAR: Regular rate and rhythm. Normal S1 and S2. No S3 or S4. ABDOMEN: Soft. EXTREMITIES: No edema. Warm distal extremities. CARDIOVASCULAR MEDICATIONS: Reviewed. Clopidogrel 75 mg daily, carvedilol 3.125 mg every 12 hours, aspirin 81 mg daily, furosemide 20 mg p.o. daily, atorvastatin 40 mg at bedtime. STUDIES: White blood cells 4.7, hemoglobin 12.2, and platelets 219. Sodium 131, potassium 3.8, chloride 95, bicarbonate 25, BUN 21, creatinine 0.67, glucose 97, and calcium 8.4. Telemetry, sinus rhythm with left bundle branch block. ASSESSMENT: 1. A 78-year-old woman with acute severe systolic heart failure. 2. Coronary artery disease, status post RCA ostium drug-eluting stent and PCI. 3. Hypothyroidism. 4. Sjogren syndrome. 5. Mild thrombocytopenia. RECOMMENDATIONS: 1. Continue current cardiovascular medications. 2. Unable to tolerate ALENA inhibitor, ARB, and Entresto given low normal blood pressure reads. 3. Continues to be euvolemic on exam. Continue diuretic at current dose. 4. Rehab evaluation ongoing. 5. Monitor platelet count, hemoglobin as well as liver function tests. 6. Outpatient evaluation for ICD candidacy after 3 months. Currently LifeVest prescribed. Jae Macias MD AFKwasi/MODL /[id number]
--- NOTE | 2018-12-10 15:42 | NUR ---
pt deferred tx due to feeling very nauseated and with loose stools, will f/u on wednesday Addendum: 12/10/18 at 1543 by Sean Thompson PTA Amended: Links added.
--- NOTE | 2018-12-10 19:00 | NUR ---
RECEIVED PATIENT IN REPORT. PATIENT STATES SHE FEELS MUCH BETTER TODAY AFTER HAVING A BM. NO NAUSEA OR PAIN REPORTED. NO S&S OF DISTRESS NOTED. BED LOCKED IN LOWEST POSITION, SIDE RAILS UPX2, CALL LIGHT IN REACH.
[2018-12-10] MEDS: ROPINIROLE HCL 0.25 MG TAB PO SCH (20:52)
[2018-12-10] MEDS: DIAZEPAM 5 MG TAB PO PRN (20:52)
[2018-12-10] MEDS: ATORVASTATIN 40 MG TAB PO SCH (20:52)
[2018-12-11] VITALS (7 sets, daily range): BP systolic 102–111; BP diastolic 55–70
[2018-12-11] MEDS: ACETAMINOPHEN 325 MG TAB PO PRN (02:36)
--- NOTE | 2018-12-11 06:15 | NUR ---
ASSISTED PATIENT TO BATHROOM. SMALL BM NOTED. STEADY GAIT NOTED.
[2018-12-11] MEDS: LEVOTHYROXINE SODIUM 100 MCG TAB PO SCH (06:19)
[2018-12-11] MEDS: FUROSEMIDE 20 MG TAB PO SCH (08:40)
[2018-12-11] MEDS: CLOPIDOGREL BISULFATE 75 MG TAB PO SCH (08:40)
[2018-12-11] MEDS: HYDROXYCHLOROQUINE SULFATE 200 MG TAB PO SCH ×2 (08:40→17:47)
[2018-12-11] MEDS: ASPIRIN 81 MG CHEW TAB PO SCH (08:41)
[2018-12-11] MEDS: CARVEDILOL 3.125 MG TAB PO SCH ×2 (08:41→20:17)
--- NOTE | 2018-12-11 11:53 | Progress Note ---
DATE: 12/11/2018 Cardiology Progress Note SUBJECTIVE: Denies any chest pain or shortness of breath. Nausea and vomiting are resolved and not recurred, so has diarrhea. She has no current complaints today and feels better overall. However, appetite continues to be diminished. OBJECTIVE: VITAL SIGNS: Temperature 97 degrees, heart rate 68, blood pressure 108/62, respiratory rate 18, O2 saturation 96%, BMI is 20.5. GENERAL: In no acute distress, alert, active. NECK: No JVD or carotid bruits. CHEST: Clear to auscultation bilaterally. CARDIOVASCULAR: Regular rate and rhythm, normal S1, S2, no S3 or S4, systolic ejection murmur /6. ABDOMEN: Soft, nontender, nondistended. Bowel sounds positive. EXTREMITIES: No cyanosis, clubbing, or edema. Warm distal extremities. CARDIOVASCULAR MEDICATIONS: Reviewed: 1. Atorvastatin 40 mg at bedtime. 2. Clopidogrel 75 mg daily. 3. Aspirin 81 mg daily. 4. Furosemide 20 mg p.o. daily. 5. Carvedilol 3.125 mg every 12 hours. LABORATORY DATA: Studies reviewed. Sodium 131, potassium 3.8, chloride 95, bicarbonate 25, BUN 21, creatinine 0.67, glucose 97. White blood cells 4.7, hemoglobin 12.2, platelets 219. INR 0.93, PT 13, PTT 31. AST 80, ALT 92, total bilirubin 0.5, alkaline phosphatase 86. ASSESSMENT: A 78-year-old woman with: 1. Acute severe systolic heart failure, left bundle branch block, Sjogren's syndrome. 2. Hypothyroidism. RECOMMENDATIONS: 1. Continue current cardiovascular medications and monitor LFTs. 2. LifeVest. 3. Outpatient followup for evaluation of ICD candidacy after 90 days post RCA drug-eluting stent PCI. MD ELIU Duenas/SIDNEY /[id number]
--- NOTE | 2018-12-11 18:58 | NUR ---
Handoff report to oncoming nurse verbalized understanding.
--- NOTE | 2018-12-11 19:02 | NUR ---
Report received from CECY Mederos at bedside. Pt is resting comfortably in bed and has no c/o pain at this time. The bed is in low locked position and call light is in reach of pt. Will continue to monitor.
[2018-12-11] MEDS: ATORVASTATIN 40 MG TAB PO SCH ×2 (20:17→20:20)
[2018-12-11] MEDS: ROPINIROLE HCL 0.25 MG TAB PO SCH (20:17)
[2018-12-11] MEDS: DIAZEPAM 5 MG TAB PO PRN (20:21)
[2018-12-12] VITALS (9 sets, daily range): BP systolic 95–125; BP diastolic 53–79
[2018-12-12] MEDS: LEVOTHYROXINE SODIUM 100 MCG TAB PO SCH (06:07)
--- NOTE | 2018-12-12 07:06 | NUR ---
BEDSIDE REPORT GIVEN TO CECY PIMENTEL. PT RESTING COMFORTABLY IN BED AT THIS TIME. CALL LIGHT IS IN REACH OF PT.
--- NOTE | 2018-12-12 07:31 | NUR ---
RECEIVED PATIENT AWAKE RESTING IN BED NO SIGNS OF DISTRESS. BED LOW, WHEELS LOCKED, SIDE RAILS X2. CALL LIGHT IN REACH. WILL CONTINUE TO MONITOR PATIENT.
[2018-12-12] MEDS: HYDROXYCHLOROQUINE SULFATE 200 MG TAB PO SCH ×2 (08:02→16:43)
[2018-12-12] MEDS: CARVEDILOL 3.125 MG TAB PO SCH ×2 (08:02→20:37)
[2018-12-12] MEDS: CLOPIDOGREL BISULFATE 75 MG TAB PO SCH (08:02)
[2018-12-12] MEDS: FUROSEMIDE 20 MG TAB PO SCH (08:02)
[2018-12-12] MEDS: ASPIRIN 81 MG CHEW TAB PO SCH (08:02)
--- NOTE | 2018-12-12 09:00 | NUR ---
PATIENT A/O X3, EVEN RESPIRATIONS ON RA. BOWEL SOUNDS ACTIVE, SKIN INTACT, NO EDEMA. PATIENT AMBULATES WITH WALKER AND ASSISTANCE. LEFT WRIST 22 GAUGE IV SL. IV INTACT AND PATENT. TELEMETRY #12 RUNNING SINUS RHYTHM WITH 1ST DEGREE BBB. VITAL SIGNS STABLE. EDUCATED PATIENT TO CALL NURSE FOR ASSISTANCE. CALL LIGHT IN REACH WILL CONTINUE TO MONITOR PATIENT.
--- NOTE | 2018-12-12 10:03 | Progress Note ---
DATE: 12/12/2018 SUBJECTIVE: This is a 78-year-old female, comes in with acute congestive heart failure, acute coronary artery disease status post PCI. The patient is awaiting a transfer to SNF. Physical Therapy is needed. The patient has debility. Currently asymptomatic. No chest pain. No shortness of breath. OBJECTIVE: VITAL SIGNS: Temperature is 97.3, pulse of 71, respirations of 18, blood pressure is 104/62. HEENT: Normocephalic, atraumatic. Pupils are reactive to light and accommodation. CVS: S1, S2 normal. Regular rate and rhythm. Ejection systolic murmur present. ABDOMEN: Nontender, nondistended. EXTREMITIES: No clubbing, no cyanosis. Positive for edema. LABORATORY VALUES: From 12/10, stable. Chemistries, creatinine 0.6783. MICROBIOLOGY: Urine cultures negative. ASSESSMENT: 1. Acute congestive heart failure number. 2. Coronary artery disease. 3. Hypothyroidism. 4. Sjogren syndrome. 5. Debility. PLAN: Plan is to continue the current medications at this time. The patient will be transferred to SNF when available. The patient will need ICD. The patient will be transferred with LifeVest. 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 The patient will be discharged today depending on availability of bed in SNF. Further recommendation per clinical course. We will continue to monitor the patient along with Cardiology. MD HAILEY MaciasJ/MODL /[id number]
--- NOTE | 2018-12-12 12:39 | NUR ---
TRIXIE SPOKE WITH SHAMAR AT [facility] WHO STATES [employer] WILL REACH OUT TO DR AGUSTIN FOR PEER TO PEER (SOUNDS BACKWARDS) I CALLED [employer] WITH [facility] WHO IS OUT TODAY AND TOMORROW [phone] I CALLED JOSE MARTIN TOLBERT (COVERING FOR [employer]) [phone] TO F/U ON PEER TO PEER SHE STATES DR AGUSTIN IS SUPPOSED TO CALL FOR THE PEER TO PEER AND CUT OFF IS AT NOON TODAY (CURRENTLY 11:57) WHILE ON THE PHONE WITH ME , JOSE MARTIN EXTENDED THE PEER TO PEER TO 2 PM [address] I [address] AGUSTIN AND GAVE HIM NUMBER FOR PEER TO PEER [phone] OPT 5 AND TOLD HIM CUT OFF AT 2 PM TODAY HE AGREED TO DO IT CM CALLED AND LEFT VM ON SHAMAR'S NUMBER AT [facility] UPDATING HER ON ABOVE AND ASKING HER TO F/U WITH JOSE MARTIN TOLBERT REGARDING RESULTS OF PEER TO PEER CM TO FOLLOW UPDATED PT AND
--- NOTE | 2018-12-12 15:28 | NUR ---
CALL FROM PT'S WHO STATES HE PUT AN OFFICIAL APPEAL FOR SNF DENIAL TODAY REQUESTS THAT I FAX ALL CLINICALS TO [facility] AT CASE # [id number] UP TO 72 HRS FOR DETERMINATION NOTIFIED DR AGUSTIN OF ABOVE P.T. NOTES STATE PT IS AMBULATING 280 FEET WITH WALKER, NO LOSS OF BALANCE, SUPERVISION ONLY WILL PROCEED WITH APPEAL BY AWARE THAT THIS WILL MOST LIKELY BE DENIED CM SPOKE WITH SHAMAR TODAY AT [facility] WHO STATES SNF DENIED AFTER PEER TO PEER WITH DR AGUSTIN
[2018-12-12] MEDS: DIAZEPAM 5 MG TAB PO PRN (20:37)
[2018-12-12] MEDS: ROPINIROLE HCL 0.25 MG TAB PO SCH (20:37)
[2018-12-12] MEDS: ATORVASTATIN 40 MG TAB PO SCH (20:38)
--- NOTE | 2018-12-12 21:26 | Progress Note ---
DATE: 12/12/2018 Cardiology Progress Note SUBJECTIVE: No chest pain or shortness of breath. Denies any lightheadedness, diarrhea or abdominal discomfort. OBJECTIVE: VITAL SIGNS: Reviewed. Temperature 96.9, heart rate 72, blood pressure 109/62, respiratory rate 18, O2 saturation 98%, BMI 20.5. GENERAL: In no acute distress, alert. NECK: No JVD. CHEST: Clear to auscultation. CARDIOVASCULAR: Regular rate and rhythm, normal S1, S2, no S3 or S4. ABDOMEN: Soft, nontender. EXTREMITIES: No edema. Warm distal extremities. CARDIOVASCULAR MEDICATIONS: Reviewed. Aspirin 81 mg daily, clopidogrel 75 mg daily, atorvastatin 40 mg at bedtime, furosemide 20 mg daily. LABORATORY DATA: Reviewed. Sodium 131, potassium 3.8, chloride 95, bicarbonate 25, BUN 21, creatinine 0.67, glucose 97. White blood cells 4.7, hemoglobin 12.2, platelets 216. INR 0.9. AST 80, ALT 92. ASSESSMENT: 1. A 78-year-old woman with acute severe systolic heart failure. 2. Coronary artery disease, status post RCA drug-eluting stent, PCI. 3. Deconditioning. 4. Sjogren's syndrome. 5. Hypothyroidism. 6. Resolved thrombocytopenia. RECOMMENDATIONS: 1. Continue current cardiovascular medications. 2. Awaiting transfer to SNF. 3. Continue adherence with LifeVest and outpatient followup after 3 months of optimal medical therapy to consider ICD candidacy. MD ELIU Duenas/SIDNEY /[id number]
[2018-12-13 04:00] VITALS: BP 110/61
[2018-12-13] MEDS: LEVOTHYROXINE SODIUM 100 MCG TAB PO SCH (06:05)
--- NOTE | 2018-12-13 06:49 | NUR ---
walking rounds done and report received. POC discussed. Patient will be discharged home once home PT/OT is set up. Tele#[phone], SR with 1st degree [email or web address]. Patient instructed to call for assistance as needed and verbalized understanding. call moreno within reach.
[2018-12-13 07:43] VITALS: BP 119/66
--- NOTE | 2018-12-13 07:48 | NUR ---
Received order for home health. Spoke to pt at bedside. She states she has never had to use home health before. States can use any company that takes her insurance. Choice letter signed for 1. [facility] 2. [facility], and 3. [facility]. Signed copy placed in chart. Copy to pt with each company's contact information. Referral was sent to [facility]. Faith Casanova, liaison with [facility] was notified of referral and pt discharging home today.
--- NOTE | 2018-12-13 07:52 | Progress Note ---
DATE: 12/13/2018 Discharge Note and Progress Note SUBJECTIVE: The patient is a 78-year-old female came in with acute systolic heart failure, was found with ejection fraction of 20%. The patient also had a PCI by Dr. Engle. The patient probably needs an AICD, will be discharged with a LifeVest and will be redetermined for an ICD probably in the later date. The patient also was suggested for SNF, but due to insurance denial, the patient will be going home with home health. The patient was able to walk for 150 feet with out any help and therefore did not . OBJECTIVE: VITAL SIGNS: Temperature is 96.1, pulse of 68, respirations of 18, blood pressure is 110/61, pulse oximetry of 97% on 2 L on room air. HEENT: Normocephalic and atraumatic. Pupils are reactive to light and accommodation. CVS: S1 and S2 normal. Ejection systolic murmur. ABDOMEN: Nontender and nondistended. EXTREMITIES: No clubbing, no cyanosis, trace edema present. LABORATORY VALUES: None done. Chemistries were normal with a creatinine of 0.67 on 12/10/2018. ASSESSMENT: 1. Acute congestive heart failure. 2. Coronary artery disease. 3. Hypothyroidism. 4. Sjogren syndrome. 5. Debility. 6. Hypertension. 7. History of anxiety. PLAN: Continue with LifeVest can be discharged today on Lasix. The patient will be seen by Dr. Jae Engle on a later date and also seen by her primary care physician, Dr. Valentine Flores. For further information, look in the chart and for the patient was advised to have daily weights and strict In's and Out's and patient will be advised to be discharged home health. MD DILCIA Macias/MODL /[id number]
[2018-12-13] MEDS: HYDROXYCHLOROQUINE SULFATE 200 MG TAB PO SCH (08:27)
[2018-12-13] MEDS: CLOPIDOGREL BISULFATE 75 MG TAB PO SCH (08:27)
[2018-12-13] MEDS: FUROSEMIDE 20 MG TAB PO SCH (08:27)
[2018-12-13] MEDS: ASPIRIN 81 MG CHEW TAB PO SCH (08:27)
[2018-12-13] MEDS: CARVEDILOL 3.125 MG TAB PO SCH (08:27)
--- NOTE | 2018-12-13 08:57 | NUR ---
Dr. Engle's office called to notify of discharge.
[2018-12-13] MEDS ORDERED: ATORVASTATIN CA20 MG PO (09:22)
[2018-12-13] MEDS ORDERED: PLAVIX75 MG PO (09:22)
[2018-12-13] MEDS ORDERED: CARVEDILOL3.125 MG PO (09:22)
[2018-12-13] MEDS ORDERED: FUROSEMIDE40 MG PO (09:23)
[2018-12-13 10:00] VITALS: BP 119/66
--- NOTE | 2018-12-13 10:00 | NUR ---
written discharge instructions provided to patient and daughter. Life vest is on. New prescriptions given . Both patient and daughter verbalized understanding. Awaiting CM to provide walker for home use.
--- NOTE | 2018-12-13 11:30 | NUR ---
Patient discharged home with daughter. She was wheeled to personal vehicle with all belongings.
[2018-12-13 11:59] VITALS: BP 111/64
--- NOTE | 2018-12-13 13:37 | NUR ---
Faith Casanova with [facility] contacted CM. Informed that pt has been accepted and they will contact pt to admit her. [facility]
--- NOTE | 2019-01-29 03:17 | Discharge Summary ---
HISTORY: This is a 78-year-old female, who came in with acute systolic heart failure, who was found to have EF of 20%. The patient also had a PCI done by Dr. Engle. The patient needs an AICD. The patient was started on LifeVest and an ICD for a later date. The patient also had suggested SNF for discharge, but the patient's insurance denied, so the patient was discharged home on LifeVest. FINAL DIAGNOSES ON DISCHARGE: 1. Acute congestive heart failure. 2. Coronary artery disease. 3. Hypothyroidism. 4. Sjogren syndrome. 5. Debility. 6. Hypertension. 7. History of anxiety. The patient was discharged on LifeVest. The patient's medications as per medical reconciliation sheet. The patient to be followed up with Dr. Engle as an outpatient basis. We will continue to monitor the patient along with primary care physician, Dr. Lira. Message will be transferred by Dr. Lira. Medicines on discharge were also written out. For further information, look in the chart. For medicines on discharge, look in medical reconciliation sheet. MD DILCIA Macias/GABYL /[id number]
== END 2018-12-13 11:24 | disposition home health service (06) | DRG 247 ==
LOC: ER 15:21 → ERHOLD 20:06 → MED/SURG 23:44
PROVIDERS: ADMIT Family Medicine; ATTEND Family Medicine
PROC: 027034Z Dilation of Coronary Artery, One Artery with Drug-eluting Intraluminal Device, Percutaneous Approach (ICD-10-PCS; principal; 2018-12-05)
PROC: 4A023N7 Measurement of Cardiac Sampling and Pressure, Left Heart, Percutaneous Approach (ICD-10-PCS; 2018-12-05)
PROC: B2111ZZ Fluoroscopy of Multiple Coronary Arteries using Low Osmolar Contrast (ICD-10-PCS; 2018-12-05)
DX: I11.0 Hypertensive heart disease with heart failure (principal); E87.1 Hypo-osmolality and hyponatremia; I25.759 Atherosclerosis of native coronary artery of transplanted heart with unspecified angina pectoris; R64 Cachexia; Z68.1 Body mass index [BMI] 19.9 or less, adult; I50.23 Acute on chronic systolic (congestive) heart failure; I44.7 Left bundle-branch block, unspecified; E11.42 Type 2 diabetes mellitus with diabetic polyneuropathy; M35.00 Sjogren syndrome, unspecified; E03.9 Hypothyroidism, unspecified; G25.81 Restless legs syndrome; Z88.5 Allergy status to narcotic agent; Z88.2 Allergy status to sulfonamides; Z88.8 Allergy status to other drugs, medicaments and biological substances; Z82.49 Family history of ischemic heart disease and other diseases of the circulatory system; Z90.49 Acquired absence of other specified parts of digestive tract; E87.6 Hypokalemia; I95.89 Other hypotension; F03.90 Unspecified dementia, unspecified severity, without behavioral disturbance, psychotic disturbance, mood disturbance, and anxiety; R53.81 Other malaise; F41.9 Anxiety disorder, unspecified; D69.6 Thrombocytopenia, unspecified
CPT/HCPCS: 36415; 51700; 71045; 80048; 80053; 81001; 82550; 82553; 83735; 83880; 84443; 84484; 85025; 85610; 85730; 87086; 92928; 93005; 93306; 93458; 97139; 99284; C1725; C1887; J1644; J1940; J2001; J2250; J3010; J3480; J7030; J7050; Q0162; Q9967

== ENCOUNTER → 2018-11-30 | Outpatient (CLI) | payer MEDICARE ==
[~2018-11-30] MED LIST: ATORVASTATIN CA20 MG PO; CARVEDILOL3.125 MG PO; FUROSEMIDE40 MG PO; LOTENSIN20 MG PO; LUBRICANT EYE1 EACH OU; PLAVIX75 MG PO; RESTASIS1 EACH OU; SYSTANE GEL EYE10 ML OU; Z PILOCARPINE HCL PO; Z.0.CLONIDINE HCL0.2 PO; Z.0.DIAZEPAM5 MG PO; Z.0.GEMFIBROZIL600 M PO; Z.0.HYDROXYCHLOROQ20 PO; Z.0.LEVOTHROID100 MC PO; Z.0.METOPROLOL SUCC2 PO
--- NOTE | 2018-11-30 13:47 | Diagnostic Imaging Report ---
EXAMINATION: PA and lateral views of the chest. COMPARISON: None CLINICAL HISTORY: Cough DISCUSSION: Lines/tubes: None. Lungs: The lungs are well inflated. Likely mild compressive atelectasis of the left lower lobe. Linear opacity in lingula likely represent subsegmental atelectasis. There is no evidence consolidation or pulmonary edema. Pleura: Small left pleural effusion. Heart and mediastinum: Mild enlargement of the cardiac silhouette. Pulmonary vasculature is normal. Atherosclerotic calcification of the thoracic aorta Bones and soft tissues: No acute bony abnormalities. Degenerative changes in the thoracic spine IMPRESSION: 1. Mild enlargement of the cardiac silhouette. Small left pleural effusion and likely associated mild compressive atelectasis of the left lower lobe. 2. Lingular subsegmental atelectasis. Signed by: Dr. Aydin Green M.D. on 11/30/2018 1:44 PM
--- NOTE | 2018-11-30 13:51 | Diagnostic Imaging Report ---
EXAM: Renal Ultrasound INDICATION: ^DYSURIA COMPARISON: None TECHNIQUE: Transverse and longitudinal images of the kidneys and bladder were obtained. FINDINGS: Right Kidney: Size: 10.1 cm, right renal cortex 1.2 cm. Appearance: Normal echogenicity. Collecting system: No hydronephrosis Stones: None Cyst/Mass: Multiple cystic, anechoic lesions are noted in the right kidney, with the largest located in the superior pole measuring 1.6 x 0.9 x 1.3 cm. Left Kidney: Size: 9.8 cm, left renal cortex 1.4 cm. Appearance: Normal echogenicity. Collecting system: No hydronephrosis Stones: None Cyst/Mass: 4.9 x 4.3 x 6.0 cm mostly exophytic lesion in the mid lateral aspect, which contains a thin nonvascular septation. Bladder: No focal lesions. 0.5 cm echogenic focus with posterior acoustic shadowing in the posterior aspect of the bladder, likely representing a calculus. Prevoid bladder volume 157.1 cc. Post void bladder volume 141.8 cc IMPRESSION: 1. Normal bilateral renal size and echogenicity. No hydronephrosis or obstruction. 2. Multiple simple appearing cysts in the right kidney, the point the largest measuring 1.6 cm. 3. 6.0 cm mostly exophytic minimally complex cyst in the left kidney. This may be followed with renal ultrasound in 6 months to document stability. 4. 0.5 cm calculus in the bladder lumen. This may represent a recently passed stone. 5. Mild to moderate post void residual Signed by: Dr. Aydin Green M.D. on 11/30/2018 1:48 PM
== END ==
LOC: US 10:57
PROVIDERS: ATTEND Family Medicine
DX: R30.0 Dysuria (principal)
CPT/HCPCS: 71046; 76770; 76857